=== PATIENT | male | born 1945 | race Caucasian/White ===

== ENCOUNTER 2022-01-27 19:39 | Inpatient (IN) | payer MEDICARE, SELFPAY ==
[2022-01-27 19:58] VITALS: BP 177/96; PULSE 72; RESP 18; TEMP 36.4; O2SAT 96
[2022-01-27 20:29] VITALS: PULSE 72; RESP 18; O2SAT 96
--- NOTE | 2022-01-27 20:30 | PCM.HP.STD ---
HPI - General General Date of Admission: 01/27/22 Date of Service: 01/28/22 Chief Complaint: Here for rehab. HPI Narrative 01/24/2022 CHRIS LYNNE, is a 76 Male who presents to [facility] Emergency Department with intermittent slurred speech, episodes of incontinence, left arm weakness, left facial droop x 3 days. Unsteady gait, headache. Patient has history of HTN, but stopped blood pressure medications, has not seen a doctor for many years. Blood pressure 237/124 on arrival. CBC okay, BMP okay, Troponin okay, EKG okay. CT head okay, Chest X-ray showed 9.5cm thoracic aortic aneurysm, CTA chest negative for thoracic aortic aneurysm. Hydralazine IV given for elevated blood pressure. No TPA recommended due to 3 day delay. MRI brain unavailable on weekends, but patient reflused transfer. 01/24/2022 Xray showed severe arthritis left hip. 01/24/2022 Admit to hospital. Control blood pressure. 01/26/2022 Feeling better. Aspirin, high intensity staty, for stroke. MRI brain, Echo pending. Atrial tachycardia on monitor. 01/27/2022 Admit to TCU with debility, here for rehabilitation, strengthening, prior to discharge home with . [facility] Medical History (Updated 01/27/22 @ 20:[address] Butch Nolasco MD) Debility Dysarthria Hypertensive urgency Left hemiparesis Osteoarthritis of left hip Pulmonary nodule Allergy/AdvReac Type Severity Reaction Status Date / Time No Known Allergies Allergy Verified 01/27/22 22:24 Family History (Updated 01/27/22 @ 20:[address] Butch Nolasco MD) Mother Cancer Father Pulmonary embolism Brother Cancer Surgical History (Updated 01/27/22 @ 20:[address] Butch Nolasco MD) History of cataract surgery Social History (Updated 01/27/22 @ 20:[address] Butch Nolasco MD) household members: spouse Smoking Status: Never smoker alcohol intake: never substance use type: does not use ROS Constitutional Constitutional: Denies chills, fever(s) or weight gain ENT HEENT: Denies headache(s), nasal congestion or nasal discharge Cardiovascular Cardiovascular: Denies chest pain or palpitations Respiratory/Chest Respiratory/Chest: Denies cough, excessive phlegm production or shortness of breath with exertion Gastrointestinal Gastrointestinal: Denies abdominal pain, nausea or vomiting Genitourinary Genitourinary: Denies dysuria Musculoskeletal Musculoskeletal: Denies joint pain or joint swelling Integumentary Integumentary: Denies rash or wounds Neurologic Neurologic: Denies focal weakness, numbness or tingling Psychiatric Psychiatric: Denies anxiety, auditory hallucinations, depression, homicidal ideation or suicidal ideation Physical Exam Const alert General Appearance: cooperative HEENT normocephalic Eyes PERRL and EOMs intact bilaterally Neck supple, no JVD and no carotid bruits Resp normal respiratory effort, normal air movement and clear to auscultation bilaterally Cardio regular rate and regular rhythm GI normal to inspection, nondistended, normoactive bowel sounds, non-tender and non-distended Extremity normal capillary refill General Extremity: Negative for edema Skin no rashes or lesions noted General Skin Exam: no breakdown Neuro Neuro Narrative: Mild left hemiparesis. Speech: speech abnormal Details: Positive for slurred (Mild.) Psych affect normal Appearance: appropriate Results Lab / Micro Data Result Diagrams: 01/28/22 05:03 01/28/22 05:03 Assessment & Plan Assessment/Plan (1) Left hemiparesis: (2) Debility: (3) Dysarthria: (4) Hypertensive urgency: (5) Osteoarthritis of left hip: (6) Pulmonary nodule: PLAN: Plan 76 year old male with below past medical history hospitalized fo stroke secondary to hypertensive urgency, admitted to TCU with debility, here for rehabilitation, strengthening, prior to discharge home with . Debility - PT/OT. Pain - Tylenol 1000mg q8h. Bowel - Miralax 17gm daily, senna/colace 1 tablet bid prn, Dulcolax 10mg daily prn. Adult immunization - Administer pneumonia vaccine, covid19 vaccine, flu vaccine. DVT prophylaxis - Lovenox 40mg sc daily. Hypertension - Lisinopril 20mg daily, Amlodipine 10mg daily. Stroke - Aspirin 81mg daily forever, Plavix 75mg daily x 30 days, then stop. Hyperlipidemia - Atorvastatin 40mg qhs. Tinea Corporis - Nystatin topical bid. GERD - Pantoprazole 20mg daily.
[2022-01-27 22:00] VITALS: BMI 25.0
[2022-01-27] MEDS: Acetaminophen 500 MG Tablet 1000 MG PO (23:12)
[2022-01-27] MEDS: amLODIPine 10 MG Tablet PO (23:13)
[2022-01-27] MEDS: Atorvastatin Calcium 40 MG Tablet PO (23:13)
--- NOTE | 2022-01-28 03:42 | NURSING ---
Pt arrived on unit approx 7pm, family transporting. Alert and oriented x 3. Pleasant and cooperative with care. No c/o pain made. Meds taken whole without difficulty.
[2022-01-28] MEDS: Menthol/Lanolin/Calamine/Znox 113 GM Tube 1 APPLIC TOPICAL (05:34)
[2022-01-28] MEDS: Clopidogrel Bisulfate 75 MG Tablet PO (05:35)
[2022-01-28] MEDS: Acetaminophen 500 MG Tablet 1000 MG PO ×3 (05:35→21:08)
[2022-01-28] MEDS: Nystatin Powder 15gm Bottle 1 APPLIC TOPICAL ×2 (05:35→18:06)
[2022-01-28] MEDS: Pantoprazole Sodium 20 MG Tablet PO (05:35)
[2022-01-28] MEDS: Lisinopril 20 MG Tablet PO (05:35)
[2022-01-28 05:43] LABS: Absolute Lymphocyte Count 2.13 X10^3/uL (0.83-4.51); Absolute Neutrophil Count 4.3 X10^3/uL (2.0-7.7); Basophil# 0.03 X10^3/uL; Basophil% 0.4 % (0-1); Eosinophil# 0.31 X10^3/uL; Eosinophils% 4.2 % (0-5); Hemoglobin 13.9 g/dL (13.0-16.5); Lymphocyte # 2.13 X10^3/ul (0.83-4.51); Lymphocyte % 29.1 % (19-41); Mean Corp Hgb Conc 33.1 g/dL (32-36); Mean Corpuscular Hgb 30.8 pg (27.0-32.0); Mean Corpuscular Volume 92.9 fL (80-94); Mean Platelet Vol. 10.3 fl (6.2-12.0); Monocyte# 0.59 X10^3/uL; NRBC Flagged by Analyzer 0 % (0-5); Neutrophil # 4.26 X10^3/uL (2.7-7.7); Neutrophil % 58.2 % (47-70); Platelet Count 175 K/mm3 (150-450); RBC Distribution Width CV 13.7 % (11.6-14.6); RBC Distribution Width SD 47.1 fl (35.1-43.9); Red Blood Count 4.52 M/mm3 (4.6-6.2); White Blood Count 7.3 K/mm3 (4.4-11.0)
[2022-01-28 06:10] LABS: Anion Gap 6 (5-15); BUN 20 mg/dL (7-18); BUN/Creat Ratio 22.3 RATIO (10-20); Calcium,Total 8.6 mg/dL (8.5-10.1); Chloride 110 mmol/L (98-107); EST Glomerular Filtration Rate 88 mL/min (>60); Est Glom Filt Rate - Afr Amer 106 mL/min (>60); Estimated Creatinine Clearance 72.01 ml/min; Glucose 96 mg/dL (74-106); Potassium 3.3 mmol/L (3.5-5.1); Sodium Level 143 mmol/L (136-145)
[2022-01-28] MEDS: Enoxaparin 40 MG/0.4 ML Syringe SC (07:22)
[2022-01-28] MEDS: Tuberculin,Purif.prot.deriv. 50 TU/ML Vial 0.1 ML ID (07:56)
[2022-01-28] MEDS: Potassium Chloride Oral Tablet 20 MEQ PO (07:56)
[2022-01-28] MEDS: Aspirin 81 MG TAB.CHEW PO (07:56)
[2022-01-28 09:22] VITALS: PULSE 82; RESP 16; O2SAT 97
[2022-01-28 09:30] VITALS: BP 162/95; PULSE 75; RESP 16; O2SAT 97
[2022-01-28 13:58] VITALS: BP 165/96; PULSE 82; RESP 12; TEMP 36.8; O2SAT 95
--- NOTE | 2022-01-28 14:08 | CASEMGMT ---
Social Work Met with patient to complete initial assessment. Introduced self and role. Verified/updated contacts to involve in updates/DC plans. Discussed code status and MOLST form. Pt confirms full code. MOLST communicated to , placed in chart. Pt to discuss with if he would like to complete advanced directives. SW offered to complete prior to DC. Explained Medicare benefit. Pt confirmed no secondary insurance. Explained copays begin on day 21, 02/16. Pt confirmed goal is to be discharged on or before day 21. The goal is for pt to return home with . SW to continue to follow for DC planning. Sherin Loredo, JONO [employer]
--- NOTE | 2022-01-28 14:38 | CHAPLAIN ---
Type of Pastoral Visit _x__ Initial Visit ___ Follow-up Visit ___ On-call Visit ___ General Patient Visit ___ Spiritual Assessment ___ Family Conference ___ Bereavement ___ Rapid Response ___ Code Blue ___ Other (describe below) Pastoral Care Referral From _x__ Patient _x__ Family ___ Nurse ___ Physician ___ Paediatric Thoracic Physician ___ Music Education Adjunct Professor ___ Other (describe below) Sacrament/Intervention _x__ Active listening ___ Anointing ___ Adventism ___ Bereavement ___ Communion ___ Nicki exploration ___ ___ Life review _x__ Prayer ___ Reconciliation ___ Sacrament of Sick _x__ Supportive presence ___ Wedding ___ Other (describe below) Pastoral Comments patient is eating lunch and has several family visitors in the room; pt refers to the three in room as the bosses and there are more of them than this; pt states that his goal is to get home as soon as possible and I can be active there; pt is welcoming of visit but does not express any needs or concerns other than going home; pt welcomes prayer; pt does not have a synagogue affiliation but does
--- NOTE | 2022-01-28 15:14 | PCM.PN.DRR ---
TCU RX Drug Regimen Review Subjective: TCU Admission. 76 YOM presented to outside ER with intermittent slurred speech, incontinence, left arm weakness and facial droop. Hospitalized for stroke secondary to hypertensive urgency. Admitted to TCU with debility for strengthening and rehabilitation. Objective: Allergies No Known Allergies Allergy (Verified 01/27/22 22:24) Current Medications Generic Name Dose Route Start Last Admin Trade Name Freq PRN Reason Stop Dose Admin Acetaminophen 1,000 mg 01/27/22 22:00 01/28/22 13:23 Acetaminophen 500 Mg Tablet PO 1,000 mg Q8 WILLIAM Administration Amlodipine Besylate 10 mg 01/27/22 22:00 01/27/22 23:13 Amlodipine 10 Mg Tablet PO 10 mg 2200 WILLIAM Administration Aspirin 81 mg 01/28/22 08:00 01/28/22 07:56 Aspirin 81 Mg Tab.Chew PO 81 mg BREAKFAST WILLIAM Administration Atorvastatin Calcium 40 mg 01/27/22 22:00 01/27/22 23:13 Atorvastatin Calcium 40 Mg Tablet PO 40 mg QHS WILLIAM Administration Bisacodyl 10 mg 01/27/22 20:45 Bisacodyl 5 Mg Tablet PO DAILY PRN Constipation Calamine/Phenol 1 applic 01/28/22 06:00 01/28/22 05:34 Menthol/Lanolin/Calamine/Znox 113 Gm Tube TOPICAL 1 applic BID WILLIAM Administration Protocol Clopidogrel Bisulfate 75 mg 01/28/22 06:00 01/28/22 05:35 Clopidogrel Bisulfate 75 Mg Tablet PO 02/27/22 06:00 75 mg DAILY WILLIAM Administration Enoxaparin Sodium 40 mg 01/28/22 06:00 01/28/22 07:22 Enoxaparin 40 Mg/0.4 Ml Syringe SC 40 mg DAILY@0600 WILLIAM Administration Lisinopril 20 mg 01/28/22 06:00 01/28/22 05:35 Lisinopril 20 Mg Tablet PO 20 mg DAILY WILLIAM Administration Nystatin 1 applic 01/28/22 06:00 01/28/22 05:35 Nystatin Powder 15gm Bottle TOPICAL 1 applic BID WILLIAM Administration Protocol Pantoprazole Sodium 20 mg 01/28/22 06:00 01/28/22 05:35 Pantoprazole Sodium 20 Mg Tablet PO 20 mg DAILY WILLIAM Administration Polyethylene Glycol 17 gm 01/28/22 06:00 01/28/22 05:35 Polyethylene Glycol 3350 17 Gm Packet PO Not Given DAILY WILLIAM Potassium Chloride 20 meq 01/28/22 08:00 01/28/22 07:53 Potassium Chloride Oral Tablet 20 Meq PO Not Given DAILYCM WILLIAM Senna/Docusate Sodium 1 tablet 01/27/22 20:45 Senna/Docusate Sodium 1 Tablet PO BID PRN PRN Constipation Tuberculin PPD 0.1 ml 02/04/22 10:00 Tuberculin,Purif.Prot.Deriv. 50 Tu/Ml Vial ID 02/04/22 10:01 X1 ONE Problem List (Last Updated 01/27/22 @ 20:[address] Butch Nolasco MD) Pulmonary nodule (Acute) Osteoarthritis of left hip (Acute) Hypertensive urgency (Acute) Dysarthria (Acute) Left hemiparesis (Acute) Debility (Acute) Vital Signs Temp Pulse Resp BP Pulse Ox 98.3 F 82 12 165/96 H 95 01/28/22 13:58 01/28/22 13:58 01/28/22 13:58 01/28/22 13:58 01/28/22 13:58 Oxygen Delivery Method Room Air Weight: 78.3 kg Body Mass Index (BMI) 25.0 Sodium 143 mmol/L (136-145) 01/28/22 05:03 Potassium 3.3 mmol/L (3.5-5.1) L 01/28/22 05:03 Chloride 110 mmol/L (98-107) H 01/28/22 05:03 Carbon Dioxide 27.0 mmol/L (21.0-32.0) 01/28/22 05:03 Anion Gap 6 (5-15) 01/28/22 05:03 BUN 20 mg/dL (7-18) H 01/28/22 05:03 Creatinine 0.90 mg/dL (0.70-1.30) 01/28/22 05:03 Est GFR (MDRD) Af Amer 106 mL/min (>60) 01/28/22 05:03 Est GFR (MDRD) Non-Af 88 mL/min (>60) 01/28/22 05:03 BUN/Creatinine Ratio 22.3 RATIO (10-20) H 01/28/22 05:03 Glucose 96 mg/dL (74-106) 01/28/22 05:03 Assessment/Plan: 1. Pain: acetaminophen 1000mg PO Q8. Please continue to monitor for increased pain. 2. Bowel: Miralax 17gm Po daily, senna/docusate 1T PO BID PRN constipation and bisacodyl 10mg PO daily PRN constipation. Please continue to monitor for constipation and PRN usage. Resident has not had a documented bowel movement yet. Resident has not had any doses of senna/docusate or bisacodyl. 3. DVT prophylaxis: enoxaparin 40mg SC daily. Please continue to monitor for S/S of bleeding/DVT, hemoglobin (last 13.9g/dL), renal function and platelets (175,000). 4. Hypertension: lisinopril 20mg PO daily and amlodipine 10mg PO 2200. Please continue to monitor BP (last 165/96), potassium (last 3.3mmol/L), renal function, cough and swelling. 5. Stroke: aspirin 81mg PO breakfast and clopidogrel 75mg PO daily thru 02/27/22. Please continue to monitor for S/S of bleeding and hemoglobin (last 13.9g/dL). 6. Hyperlipidemia: atorvastatin 40mg PO QHS. Resident does not have a lipid panel in the chart. Please consider ordering a lipid panel now and then annually if clinically appropriate. Please continue to monitor for muscle pain and AST/ALT (last 01/22/22). 7. GERD: pantoprazole 20mg PO daily. Please continue to monitor for S/S of GERD and diarrhea. 8. Hypokalemia (potassium = 3.3mmol/L): potassium 20mEq PO DAILYCM. Please continue to monitor potassium level. Assessment/Plan for indications treated with psychotropic medications: None Medical chart and medication regimen reviewed. The following medication irregularities or issues were identified: *1. Atorvastatin 40mg PO QHS. Resident does not have a lipid panel in the chart. Please consider ordering a lipid panel if clinically appropriate. Thanks. . Date of Note:: 01/28/22
[2022-01-28] MEDS: Atorvastatin Calcium 40 MG Tablet PO (21:09)
[2022-01-28] MEDS: amLODIPine 10 MG Tablet PO (21:09)
[2022-01-29 05:31] VITALS: BP 143/88; PULSE 66
[2022-01-29] MEDS: Clopidogrel Bisulfate 75 MG Tablet PO (05:31)
[2022-01-29] MEDS: Enoxaparin 40 MG/0.4 ML Syringe SC (05:31)
[2022-01-29] MEDS: Lisinopril 20 MG Tablet PO (05:31)
[2022-01-29] MEDS: Pantoprazole Sodium 20 MG Tablet PO (05:31)
[2022-01-29] MEDS: Acetaminophen 500 MG Tablet 1000 MG PO ×3 (05:31→20:45)
[2022-01-29] MEDS: Nystatin Powder 15gm Bottle 1 APPLIC TOPICAL ×2 (05:34→18:06)
[2022-01-29] MEDS: Menthol/Lanolin/Calamine/Znox 113 GM Tube 1 APPLIC TOPICAL ×3 (05:34→20:45)
[2022-01-29] MEDS: Aspirin 81 MG TAB.CHEW PO (08:09)
[2022-01-29] MEDS: Potassium Chloride Oral Tablet 20 MEQ PO (08:10)
[2022-01-29 15:41] VITALS: BP 163/91; PULSE 69
[2022-01-29 16:18] VITALS: RESP 18; TEMP 36.2; O2SAT 97
[2022-01-29] MEDS: Losartan Potassium 100 MG Tablet PO (16:20)
[2022-01-29 18:03] VITALS: BP 178/101; PULSE 76
[2022-01-29] MEDS: Metoprolol Tartrate 25 MG Tablet 12.5 MG PO (18:03)
[2022-01-29 18:43] VITALS: BP 162/92; PULSE 72
[2022-01-29] MEDS: Atorvastatin Calcium 40 MG Tablet PO (20:44)
[2022-01-29] MEDS: amLODIPine 10 MG Tablet PO (20:45)
[2022-01-29 21:00] VITALS: PULSE 64; RESP 18; O2SAT 97
[2022-01-30] MEDS: Enoxaparin 40 MG/0.4 ML Syringe SC (05:27)
[2022-01-30] MEDS: Acetaminophen 500 MG Tablet 1000 MG PO ×3 (05:27→20:44)
[2022-01-30 05:28] VITALS: BP 152/83; PULSE 63
[2022-01-30] MEDS: Metoprolol Tartrate 25 MG Tablet 12.5 MG PO (05:28)
[2022-01-30] MEDS: Losartan Potassium 100 MG Tablet PO (05:28)
[2022-01-30] MEDS: Clopidogrel Bisulfate 75 MG Tablet PO (05:28)
[2022-01-30] MEDS: Pantoprazole Sodium 20 MG Tablet PO (05:28)
[2022-01-30] MEDS: Nystatin Powder 15gm Bottle 1 APPLIC TOPICAL ×2 (05:29→17:32)
[2022-01-30 06:27] LABS: Anion Gap 5 (5-15); BUN 20 mg/dL (7-18); BUN/Creat Ratio 21.3 RATIO (10-20); Calcium,Total 8.8 mg/dL (8.5-10.1); Chloride 109 mmol/L (98-107); Creatinine, Serum 0.94 mg/dL (0.70-1.30); EST Glomerular Filtration Rate 84 mL/min (>60); Est Glom Filt Rate - Afr Amer 101 mL/min (>60); Estimated Creatinine Clearance 68.95 ml/min; Glucose 99 mg/dL (74-106); Potassium 4.5 mmol/L (3.5-5.1); Sodium Level 142 mmol/L (136-145)
[2022-01-30] MEDS: Aspirin 81 MG TAB.CHEW PO (09:12)
[2022-01-30] MEDS: Potassium Chloride Oral Tablet 20 MEQ PO (09:12)
[2022-01-30 14:00] VITALS: BP 163/116; PULSE 81; RESP 18; TEMP 36.4; O2SAT 96
[2022-01-30 14:21] VITALS: BP 156/92
--- NOTE | 2022-01-30 14:42 | NURSING ---
Addendum entered by Ilsa Jackson 01/30/22 15:58: Dr. Nolasco updated and New Order to increase Metoprolol 50mg. Addendum entered by Ilsa Jackson 01/30/22 15:26: Rechecked pt BP at rest 134/86 Pulse 60 Original Note: This nurse took pt's BP at rest and was 163/116 Pulse 81 Rechecked with manual and BP 156/92. Pt up with Therapy rechecked BP and 180/111 will recheck at rest and update Dr. Nolasco.
[2022-01-30 17:31] VITALS: BP 159/92; PULSE 86
[2022-01-30] MEDS: Metoprolol Tartrate 50 MG Tablet PO (17:31)
[2022-01-30] MEDS: Menthol/Lanolin/Calamine/Znox 113 GM Tube 1 APPLIC TOPICAL (17:34)
[2022-01-30] MEDS: amLODIPine 10 MG Tablet PO (20:44)
[2022-01-30] MEDS: Atorvastatin Calcium 40 MG Tablet PO (20:44)
[2022-01-30 20:46] VITALS: BP 143/85; PULSE 72
[2022-01-31 05:59] VITALS: BP 165/88; PULSE 58
[2022-01-31] MEDS: Enoxaparin 40 MG/0.4 ML Syringe SC (05:59)
[2022-01-31] MEDS: Metoprolol Tartrate 50 MG Tablet PO ×2 (05:59→17:21)
[2022-01-31] MEDS: Pantoprazole Sodium 20 MG Tablet PO (05:59)
[2022-01-31] MEDS: Clopidogrel Bisulfate 75 MG Tablet PO (05:59)
[2022-01-31] MEDS: Losartan Potassium 100 MG Tablet PO (05:59)
[2022-01-31] MEDS: Acetaminophen 500 MG Tablet 1000 MG PO ×3 (05:59→22:36)
[2022-01-31] MEDS: Nystatin Powder 15gm Bottle 1 APPLIC TOPICAL ×2 (06:06→17:21)
[2022-01-31] MEDS: Menthol/Lanolin/Calamine/Znox 113 GM Tube 1 APPLIC TOPICAL ×2 (06:08→17:21)
[2022-01-31] MEDS: Potassium Chloride Oral Tablet 20 MEQ PO (07:55)
[2022-01-31] MEDS: Aspirin 81 MG TAB.CHEW PO (07:55)
--- NOTE | 2022-01-31 12:54 | NURSING ---
Resident educated on the COVID 19 vaccine. He does not want to receive it.
--- NOTE | 2022-01-31 13:51 | MDS.RN ---
Pain interview for RAY 02/03/22 completed.
[2022-01-31 14:00] VITALS: BP 146/74; PULSE 70; RESP 16; TEMP 36.6; O2SAT 94
--- NOTE | 2022-01-31 14:26 | CASEMGMT ---
BIMS and PHQ9 interviews completed on this date for MDS assessment. AUGUSTO Young
[2022-01-31 17:21] VITALS: PULSE 70
--- NOTE | 2022-01-31 18:20 | PCM.CONS.GEN ---
Assessment & Plan Assessment/Plan (1) Dysphagia: PLAN: The differential diagnosis for esophageal dysphagia does include an esophageal ring, esophageal web, erosive esophagitis, esophageal malignancy. Also differential diagnosis would include hiatal hernia. He should undergo an upper endoscopy evaluate his upper GI tract. He was explained alternatives, risk, benefits including outstanding bleeding, infection, sepsis, perforation, need for emergent or . He will have an ASA of 3. He will need to be n.p.o. past midnight. HPI Consult Data Date of Consult: 01/31/22 HPI Narrative Reason for Consultation: Dysphagia HPI Narrative: CHRIS LYNNE, is a 76 M who presents for rehab after being transferred from an outside institution. He presented to outside ER with intermittent slurred speech, incontinence, left arm weakness and facial droop. Hospitalized for stroke secondary to hypertensive urgency. Admitted to TCU with debility for strengthening and rehabilitation. I was asked to see him because he has been having some intermittent esophageal dysphagia with solid foods. He used to have a history of reflux disease requiring Tums therapy on an intermittent basis. However over the last several years he has not had any signs and symptoms of reflux disease but he has been having progressive esophageal dysphagia. His weight has been stable. He has no family history of esophageal cancer or Mendoza's esophagus. He does not know if he has any hiatal hernia or any GI pathology in his upper GI tract. He mostly is having up feeling of mid substernal sticking of food that he calls a gas pocket. [facility] Medical History (Updated 01/31/22 @ 18:[address] Gross Friend, DO) Debility Dysarthria Hypertensive urgency Left hemiparesis Osteoarthritis of left hip Pulmonary nodule Allergy/AdvReac Type Severity Reaction Status Date / Time No Known Allergies Allergy Verified 01/27/22 22:24 Family History (Updated 01/27/22 @ 20:[address] Butch Nolasco MD) Mother Cancer Father Pulmonary embolism Brother Cancer Surgical History (Updated 01/27/22 @ 20:[address] Butch Nolasco MD) History of cataract surgery Social History (Updated 01/27/22 @ 20:[address] Butch Nolasco MD) household members: spouse Smoking Status: Never smoker alcohol intake: never substance use type: does not use ROS Constitutional Constitutional: Denies chills, fever(s) or weight gain ENT HEENT: Denies headache(s), nasal congestion or nasal discharge Cardiovascular Cardiovascular: Denies chest pain or palpitations Respiratory/Chest Respiratory/Chest: Denies cough, excessive phlegm production or shortness of breath with exertion Gastrointestinal Gastrointestinal: Denies abdominal pain, nausea or vomiting Genitourinary Genitourinary: Denies dysuria Musculoskeletal Musculoskeletal: Denies joint pain or joint swelling Integumentary Integumentary: Denies rash or wounds Neurologic Neurologic: Denies focal weakness, numbness or tingling Psychiatric Psychiatric: Denies anxiety, auditory hallucinations, depression, homicidal ideation or suicidal ideation Physical Exam Const alert General Appearance: cooperative HEENT normocephalic Eyes PERRL and EOMs intact bilaterally Neck supple, no JVD and no carotid bruits Resp normal respiratory effort, normal air movement and clear to auscultation bilaterally Cardio regular rate and regular rhythm GI normal to inspection, nondistended, normoactive bowel sounds, non-tender and non-distended Extremity normal capillary refill General Extremity: Negative for edema Skin no rashes or lesions noted General Skin Exam: no breakdown Neuro Neuro Narrative: Mild left hemiparesis. Speech: speech abnormal Details: Positive for slurred (Mild.) Psych affect normal Appearance: appropriate Lab / Micro Data Result Diagrams: 01/28/22 05:03 01/30/22 05:19 Charges/Coding Visit Charges Inpatient E&M: 62279 Init Hosp L2
[2022-01-31 22:20] VITALS: PULSE 59; RESP 16; O2SAT 96
[2022-01-31] MEDS: amLODIPine 10 MG Tablet PO (22:37)
[2022-01-31] MEDS: Atorvastatin Calcium 40 MG Tablet PO (22:37)
[2022-02-01] VITALS (12 sets, daily range): BP systolic 150–168; BP diastolic 71–95; PULSE 59–68; RESP 16–18; TEMP 36.1–36.2; O2SAT 95–98
--- NOTE | 2022-02-01 | EGD_PTH ---
PATIENT: Eebnezer LYNNE LOC: [facility] U#:[id number] AGE/SX: 76/M ROOM: [facility] RE01/27/[address]: Dr. Butch Nolasco MD : 1945 BED: 1 DIS: 02/08/2022 SPEC #: [id number] RECD: 02/01/22 09:18 STATUS: BRAD HAYES #: [id number] JUAN: 02/01/22 00:[address]: Ra Emilianohsaan DEPT: SURGICAL PATHOLOGY RECD BY: Osman Nice ENTERED: 02/04/22 10:14 SP TYPE: EGD BIOPSY OTHR DR: Dr. Butch Nolasco MD No Primary Care Phys Tissues: A - Esophagus, NOS B - Gastric mucous membrane Procedures: Surgery Specimen Level IV HEADER OPERATION: EGD with biopsy (MAC) PRE-OP DIAGNOSIS: Dysphagia TISSUE SUBMITTED: A ? Distal esophagus biopsy, B ? Gastric body biopsy MICROSCOPIC DIAGNOSIS A. Distal esophagus, biopsy: Fragments of squamous mucosa, no pathologic diagnosis. B. Gastric body, biopsy: Mild gastritis. See microscopic description and comment. JAMES:alex 02/05/2022 COMMENT B. The results of immunohistochemistry for Helicobacter pylori will be reported separately ([id number]). MICROSCOPIC DESCRIPTION Slides are reviewed. B. The specimen shows fragments of gastric mucosa with chronic inflammatory cell infiltrates in the lamina propria consisting of lymphocytes and plasma cells, consistent with mild chronic gastritis. GROSS DESCRIPTION A - Received in fixative is one container labeled with the patient's name and designated distal esophagus biopsy. The specimen consists of multiple irregular fragments of light lebron soft tissue that in aggregate measure 0.4 x 0.3 x 0.1 cm. The specimen is totally submitted in one cassette. B - Received in fixative is one container labeled with the patient's name and designated gastric body biopsy. The specimen consists of two irregular fragments of light lebron soft tissue that in aggregate measure 0.8 x 0.6 x 0.1 cm. The specimen is totally submitted in one cassette. / JAMES:alex 02/04/2022 TC:3 CPT: 68838 x2
[2022-02-01] MEDS: Potassium Chloride Oral Tablet 20 MEQ PO (07:46)
[2022-02-01] MEDS: Clopidogrel Bisulfate 75 MG Tablet PO (07:46)
[2022-02-01] MEDS: Losartan Potassium 100 MG Tablet PO (07:46)
[2022-02-01] MEDS: Aspirin 81 MG TAB.CHEW PO (07:46)
[2022-02-01] MEDS: Pantoprazole Sodium 20 MG Tablet PO (07:46)
[2022-02-01] MEDS: Metoprolol Tartrate 50 MG Tablet PO ×2 (07:46→16:36)
--- NOTE | 2022-02-01 07:50 | NURSING ---
pt off floor to Endo via WC at this time.
--- NOTE | 2022-02-01 08:05 | IMM_PTH ---
PATIENT: Ebenezer LYNNE LOC: [facility] U#:[id number] AGE/SX: 76/M ROOM: [facility] RE01/27/[address]: Dr. Butch Nolasco MD : 1945 BED: 1 DIS: 02/08/2022 SPEC #: [id number] RECD: 02/04/22 13:12 STATUS: BRAD REMarcel #: [id number] JUAN: 02/01/22 08:[address]: Ra Emilianohsaan DEPT: IMMUNOHISTOCHEMISTRY RECD BY: Leana Gutierrez ENTERED: 02/04/22 13:13 SP TYPE: IMMUNO OTHR DR: Dr. Butch Nolasco MD No Primary Care Phys Tissues: B - Stomach, NOS Procedures: H Pylori (initial) PHYSICIAN & INSTITUTION [place] [phone] SPECIMEN INFORMATION: Tissue Source: B ? Gastric body Clinical Info: Dysphagia Specimen Number: [id number] CPT code: 82000 METHODOLOGY: Deparaffinized sections of prefer/formalin-fixed tissue or PAP/DQ stained slides are incubated with monoclonal/polyclonal antibodies/oligonucleotide probes. Localization is made via biotin free immunoperoxidase method. Appropriate controls are performed and reacted as expected. Results on target cell population are indicated in the following table: RESULTS: ANTIBODY / CLONE RESULT Block B H Pylori (polyclonal) negative These tests were developed and their performance characteristics determined by [facility]. They may not have been cleared or approved by the U.S. Food and Drug Administration. The FDA has determined that such clearance or approval is not necessary. The above immunohistochemical/dualISH markers are ordered and reviewed by the Pathologist. INTERPRETATION: B. Gastric body, biopsy: Negative for Helicobacter pylori organisms. SJ:alex 02/05/2022
--- NOTE | 2022-02-01 08:36 | OP.EGD_ITS ---
Patient Name: Braden Ferrara Procedure Date: 02/01/2022 8:15 AM Date of : 1945 Age: 76 Procedure: Upper GI endoscopy Indications: Dysphagia Providers: Renato Cummings DO Medicines: Monitored Anesthesia Care Patient Profile: This is a 76 year old male. Refer to note in patient chart for documentation of history and physical. Patient has symptoms of chronic dysphagia and dysphagia with solids. Complications: No immediate complications. Procedure: Pre-Anesthesia Assessment: - Prior to the procedure, a History and Physical was performed, and patient medications and allergies were reviewed. The risks and benefits of the procedure and the sedation options and risks were discussed with the patient. All questions were answered and informed consent was obtained. Patient identification and proposed procedure were verified by the physician in the pre-procedure area. Mental Status Examination: alert and oriented. Airway Examination: normal oropharyngeal airway and neck mobility. Respiratory Examination: clear to auscultation. CV Examination: normal. Prophylactic Antibiotics: The patient does not require prophylactic antibiotics. Prior Anticoagulants: The patient has taken no previous anticoagulant or antiplatelet agents. After reviewing the risks and benefits, the patient was deemed in satisfactory condition to undergo the procedure. The anesthesia plan was to use moderate sedation / analgesia (conscious sedation). Immediately prior to administration of medications, the patient was re-assessed for adequacy to receive sedatives. The heart rate, respiratory rate, oxygen saturations, blood pressure, adequacy of pulmonary ventilation, and response to care were monitored throughout the procedure. The physical status of the patient was re-assessed after the procedure. After obtaining informed consent, the endoscope was passed under direct vision. Throughout the procedure, the patient's blood pressure, pulse, and oxygen saturations were monitored continuously. The Endoscope was introduced through the mouth, and advanced to the second part of duodenum. The upper GI endoscopy was accomplished without difficulty. The patient tolerated the procedure well. Scope In: 8:19:58 AM Scope Out: 8:26:23 AM Total Procedure Duration Time 0 hours 6 minutes 25 seconds Findings: The Z-line was irregular and was found 36 cm from the incisors. Biopsies were taken with a cold forceps for histology. Verification of patient identification for the specimen was done. Estimated blood loss was minimal. A large hiatal hernia was present. A small amount of food (residue) was found in the gastric fundus. A large hiatal hernia with multiple Stephane ulcers was found. The proximal extent of the gastric folds (end of tubular esophagus) was 34 cm from the incisors. The hiatal narrowing was 42 cm from the incisors. Four oozing linear gastric ulcers were found in the gastric body. The largest lesion was 6 mm in largest dimension. Biopsies were taken with a cold forceps for histology. Verification of patient identification for the specimen was done. Estimated blood loss was minimal. The second portion of the duodenum was normal. Impression: - Z-line irregular, 36 cm from the incisors. Biopsied. - Large hiatal hernia. - A small amount of food (residue) in the stomach. - Large hiatal hernia with multiple Stephane ulcers. - Oozing gastric ulcers. Biopsied. - Normal second portion of the duodenum. Recommendation: - [facility] care. - Resume previous diet. - Continue present medications. - Await pathology results. - Use Protonix (pantoprazole) 40 mg PO BID for 8 weeks. Procedure Code(s): --- Professional --- 08553, Esophagogastroduodenoscopy, flexible, transoral; with biopsy, single or multiple CPT copyright 2017 [employer]. All rights reserved. The codes documented in this report are preliminary and upon clinical assoc review may be revised to meet current compliance requirements. Renato Cummings DO 02/01/2022 8:36:24 AM This report has been signed electronically. Number of Addenda: 1 Note Initiated On: 02/01/2022 8:15 AM Addendum Number: 1 Addendum Date: 05/07/2022 6:32:53 AM MAC was used as sedation for this procedure. Renato Cummings DO 05/07/2022 6:32:57 AM This report has been signed electronically.
--- NOTE | 2022-02-01 08:37 | OP.CCLET_ITS ---
05/07/2022 No Primary Care Physician Re : Upper GI endoscopy procedure for Braden Ferrara Dear Care Physician This procedure was performed on Tuesday, February 01, 2022. My impressions and recommendations are as follows: Impressions : - Z-line irregular, 36 cm from the incisors. Biopsied. - Large hiatal hernia. - A small amount of food (residue) in the stomach. - Large hiatal hernia with multiple Stephane ulcers. - Oozing gastric ulcers. Biopsied. - Normal second portion of the duodenum. Recommendations : - [facility] to [facility] care. - Resume previous diet. - Continue present medications. - Await pathology results. - Use Protonix (pantoprazole) 40 mg PO BID for 8 weeks. My findings are described in the full procedure note, which is enclosed. If I can be of further assistance, please feel free to contact me at . Sincerely, Renato Cummings, 02/01/2022 8:36:24 AM This report has been signed electronically.
--- NOTE | 2022-02-01 09:15 | NURSING ---
pt retured from endo, awake and oriented. eating jello and drinking gingerale. new orders for IV protonix, biospsies sent.
[2022-02-01] MEDS: 0.9% Saline Lock 10 ML Syringe IV (10:24)
[2022-02-01] MEDS: Nystatin Powder 15gm Bottle 1 APPLIC TOPICAL ×2 (10:24→16:39)
[2022-02-01] MEDS: Menthol/Lanolin/Calamine/Znox 113 GM Tube 1 APPLIC TOPICAL ×2 (10:24→16:38)
--- NOTE | 2022-02-01 12:58 | NURSING ---
Addendum entered by Tanisha Freed 02/01/22 13:02: when entered pt room, many family members/ including children in room without masks. reminded them that [facility] protocol is to keep masks on at all times. They did all place them back on their faces. Original Note: & pt notified that we had a staff member test positive.
[2022-02-01] MEDS: Acetaminophen 500 MG Tablet 1000 MG PO ×2 (13:49→21:19)
--- NOTE | 2022-02-01 15:54 | NURSING ---
pt is to have IV protonix 12hrs then can be changed to oral protonix 40mg BID per Dr Cummings
[2022-02-01] MEDS: Atorvastatin Calcium 40 MG Tablet PO (21:19)
[2022-02-01] MEDS: amLODIPine 10 MG Tablet PO (21:19)
[2022-02-02] MEDS: 0.9% Saline Lock 10 ML Syringe IV (00:20)
[2022-02-02 06:34] VITALS: BP 159/75; PULSE 61
[2022-02-02] MEDS: Acetaminophen 500 MG Tablet 1000 MG PO ×3 (06:34→20:44)
[2022-02-02] MEDS: Metoprolol Tartrate 50 MG Tablet PO ×2 (06:34→17:19)
[2022-02-02] MEDS: Enoxaparin 40 MG/0.4 ML Syringe SC (06:34)
[2022-02-02] MEDS: Losartan Potassium 100 MG Tablet PO (06:34)
[2022-02-02] MEDS: Pantoprazole Sodium 40 MG Tablet PO ×2 (06:34→17:19)
[2022-02-02] MEDS: Clopidogrel Bisulfate 75 MG Tablet PO (06:34)
[2022-02-02] MEDS: Menthol/Lanolin/Calamine/Znox 113 GM Tube 1 APPLIC TOPICAL ×2 (06:34→17:22)
[2022-02-02] MEDS: Nystatin Powder 15gm Bottle 1 APPLIC TOPICAL ×2 (06:36→17:22)
[2022-02-02] MEDS: Aspirin 81 MG TAB.CHEW PO (08:10)
[2022-02-02] MEDS: Potassium Chloride Oral Tablet 20 MEQ PO (08:10)
[2022-02-02 14:00] VITALS: BP 157/70; PULSE 55; RESP 17; TEMP 36; O2SAT 96
[2022-02-02 17:19] VITALS: PULSE 55
[2022-02-02] MEDS: amLODIPine 10 MG Tablet PO (20:44)
[2022-02-02] MEDS: Atorvastatin Calcium 40 MG Tablet PO (20:44)
[2022-02-02 20:53] VITALS: BP 161/81; PULSE 66
[2022-02-03] MEDS: Enoxaparin 40 MG/0.4 ML Syringe SC (05:23)
[2022-02-03] MEDS: Acetaminophen 500 MG Tablet 1000 MG PO ×3 (05:24→20:46)
[2022-02-03 05:25] VITALS: BP 159/84; PULSE 61
[2022-02-03] MEDS: Metoprolol Tartrate 50 MG Tablet PO ×2 (05:25→17:29)
[2022-02-03] MEDS: Pantoprazole Sodium 40 MG Tablet PO ×2 (05:25→17:29)
[2022-02-03] MEDS: Losartan Potassium 100 MG Tablet PO (05:26)
[2022-02-03] MEDS: Clopidogrel Bisulfate 75 MG Tablet PO (05:26)
[2022-02-03] MEDS: Nystatin Powder 15gm Bottle 1 APPLIC TOPICAL ×2 (05:28→17:29)
[2022-02-03] MEDS: Menthol/Lanolin/Calamine/Znox 113 GM Tube 1 APPLIC TOPICAL ×2 (05:28→17:29)
[2022-02-03] MEDS: Potassium Chloride Oral Tablet 20 MEQ PO (08:22)
[2022-02-03] MEDS: Aspirin 81 MG TAB.CHEW PO (08:22)
[2022-02-03 10:00] VITALS: PULSE 61; RESP 16; O2SAT 98
[2022-02-03 14:00] VITALS: BP 165/78; PULSE 56; RESP 18; TEMP 36; O2SAT 97
[2022-02-03 17:29] VITALS: PULSE 56
[2022-02-03] MEDS: amLODIPine 10 MG Tablet PO (20:46)
[2022-02-03] MEDS: Atorvastatin Calcium 40 MG Tablet PO (20:46)
[2022-02-04] MEDS: Enoxaparin 40 MG/0.4 ML Syringe SC (05:30)
[2022-02-04 05:31] VITALS: BP 148/76; PULSE 55
[2022-02-04] MEDS: Clopidogrel Bisulfate 75 MG Tablet PO (05:31)
[2022-02-04] MEDS: Pantoprazole Sodium 40 MG Tablet PO ×2 (05:31→17:32)
[2022-02-04] MEDS: Losartan Potassium 100 MG Tablet PO (05:31)
[2022-02-04] MEDS: Acetaminophen 500 MG Tablet 1000 MG PO ×3 (05:31→21:42)
[2022-02-04] MEDS: Metoprolol Tartrate 50 MG Tablet PO ×2 (05:31→17:32)
[2022-02-04] MEDS: Menthol/Lanolin/Calamine/Znox 113 GM Tube 1 APPLIC TOPICAL ×2 (05:34→17:32)
[2022-02-04] MEDS: Nystatin Powder 15gm Bottle 1 APPLIC TOPICAL ×2 (05:35→17:32)
[2022-02-04 06:00] LABS: Absolute Lymphocyte Count 2.07 X10^3/uL (0.83-4.51); Absolute Neutrophil Count 3.8 X10^3/uL (2.0-7.7); Basophil# 0.04 X10^3/uL; Basophil% 0.6 % (0-1); Eosinophil# 0.25 X10^3/uL; Eosinophils% 3.6 % (0-5); Hematocrit 42.7 % (40-54); Lymphocyte # 2.07 X10^3/ul (0.83-4.51); Lymphocyte % 30.2 % (19-41); Mean Corp Hgb Conc 32.8 g/dL (32-36); Mean Corpuscular Hgb 30.6 pg (27.0-32.0); Mean Corpuscular Volume 93.2 fL (80-94); Mean Platelet Vol. 10.6 fl (6.2-12.0); Monocyte# 0.66 X10^3/uL; Monocyte% 9.6 % (0-10); NRBC Flagged by Analyzer 0 % (0-5); Neutrophil # 3.82 X10^3/uL (2.7-7.7); Neutrophil % 55.7 % (47-70); Platelet Count 196 K/mm3 (150-450); RBC Distribution Width CV 13.6 % (11.6-14.6); RBC Distribution Width SD 46.4 fl (35.1-43.9); Red Blood Count 4.58 M/mm3 (4.6-6.2); White Blood Count 6.9 K/mm3 (4.4-11.0)
[2022-02-04 06:39] LABS: Anion Gap 3 (5-15); BUN 25 mg/dL (7-18); BUN/Creat Ratio 25.8 RATIO (10-20); Calcium,Total 8.8 mg/dL (8.5-10.1); Chloride 111 mmol/L (98-107); Creatinine, Serum 0.97 mg/dL (0.70-1.30); EST Glomerular Filtration Rate 80 mL/min (>60); Est Glom Filt Rate - Afr Amer 97 mL/min (>60); Estimated Creatinine Clearance 66.81 ml/min; Glucose 93 mg/dL (74-106); Potassium 3.7 mmol/L (3.5-5.1); Sodium Level 141 mmol/L (136-145)
[2022-02-04] MEDS: Potassium Chloride Oral Tablet 20 MEQ PO (08:12)
[2022-02-04] MEDS: Aspirin 81 MG TAB.CHEW PO (08:12)
--- NOTE | 2022-02-04 08:21 | NURSING ---
Air Brake Man Note: MDS Section F and interview completed.
[2022-02-04 14:00] VITALS: BP 159/91; PULSE 58; RESP 18; TEMP 36.8; O2SAT 97
[2022-02-04] MEDS: Tuberculin,Purif.prot.deriv. 50 TU/ML Vial 0.1 ML ID (14:19)
[2022-02-04 17:32] VITALS: BP 159/91; PULSE 58
[2022-02-04] MEDS: amLODIPine 10 MG Tablet PO (21:42)
[2022-02-04] MEDS: Atorvastatin Calcium 40 MG Tablet PO (21:42)
[2022-02-04 23:00] VITALS: PULSE 64; RESP 18; O2SAT 99
[2022-02-05] MEDS: Losartan Potassium 100 MG Tablet PO (05:33)
[2022-02-05] MEDS: Clopidogrel Bisulfate 75 MG Tablet PO (05:33)
[2022-02-05] MEDS: Pantoprazole Sodium 40 MG Tablet PO ×2 (05:33→17:40)
[2022-02-05] MEDS: Enoxaparin 40 MG/0.4 ML Syringe SC (05:33)
[2022-02-05] MEDS: Acetaminophen 500 MG Tablet 1000 MG PO ×3 (05:33→20:59)
[2022-02-05 05:34] VITALS: BP 146/76; PULSE 60
[2022-02-05] MEDS: Nystatin Powder 15gm Bottle 1 APPLIC TOPICAL ×2 (05:34→17:40)
[2022-02-05] MEDS: Metoprolol Tartrate 50 MG Tablet PO ×2 (05:34→17:40)
[2022-02-05] MEDS: Aspirin 81 MG TAB.CHEW PO (08:11)
[2022-02-05] MEDS: Potassium Chloride Oral Tablet 20 MEQ PO (08:11)
[2022-02-05 09:37] VITALS: PULSE 73; O2SAT 97
--- NOTE | 2022-02-05 09:52 | CASEMGMT ---
Addendum entered by Sherin Loredo 02/05/22 10:10: Correction: Enrique Oropeza PT. Original Note: Social Work IDT met with patient, and dtr for care plan meeting. Discussed patient's progress in PT/OT/SN. Explained Medicare benefit. Encouraged to contact secondary insurance to ensure copay coverage. Explained and provided stroke support group brochure. IDT set DC date for 02/08. Pt is agreeable. Discussed HHC vs OP. IDT recommending OP PT. Pt agreeable. Verbally provided options. Pt/ prefer [facility]. Referral to be made. No DME needs. to transport. Plan: DC home 02/08 with , [facility]. JONO SenaW
[2022-02-05 14:00] VITALS: BP 160/92; PULSE 66; RESP 17; TEMP 36.4; O2SAT 97
--- NOTE | 2022-02-05 14:08 | DS.PCM_ITS ---
Providers Date of Admission: 01/27/22 Primary Care Physician: No Primary Care Phys Consultations 01/30/22 15:43 Consult: Gastroenterology Routine Consulting Provider: [facility] Reason for Consult: Dysphagia, esophageal retention. EMERGENT Consult: No MD Notified: Yes Date Notified: 01/31/22 Time Notified: 11:53 Method of Notification: Verbal Reason For Visit: LT SIDE WEAKNESS DUE TO STROKE Diagnosis Discharge Diagnosis (1) Dysphagia: Status: Acute Code(s): R13.10 - Dysphagia, unspecified Plan 76 year old male with below past medical history hospitalized fo stroke secondary to hypertensive urgency, admitted to TCU with debility, here for rehabilitation, strengthening, prior to discharge home with . * Debility - PT/OT. * Pain - Tylenol 1000mg q8h. * Bowel - Miralax 17gm daily, senna/colace 1 tablet bid prn, Dulcolax 10mg daily prn. * Adult immunization - Administer pneumonia vaccine, covid19 vaccine, flu vaccine. * DVT prophylaxis - Lovenox 40mg sc daily. * Hypertension - Lisinopril 20mg daily, Amlodipine 10mg daily. * Stroke - Aspirin 81mg daily forever, Plavix 75mg daily x 30 days, then stop. * Hyperlipidemia - Atorvastatin 40mg qhs. * Tinea Corporis - Nystatin topical bid. * GERD - Pantoprazole 20mg daily. Medications at Discharge Home Medications amlodipine 10 mg tablet 10 mg PO 2200 30 days #30 tabs 02/05/22 aspirin 81 mg chewable tablet 81 mg PO BREAKFAST 30 days #30 tabs 02/05/22 atorvastatin 40 mg tablet 40 mg PO QHS 30 days #30 tabs 02/05/22 clopidogrel 75 mg tablet 75 mg PO DAILY 19 days #19 tabs 02/05/22 losartan 100 mg tablet 100 mg PO DAILY 30 days #30 tabs 02/05/22 metoprolol tartrate 50 mg tablet 50 mg PO BID 30 days #60 tabs 02/05/22 pantoprazole 40 mg tablet,delayed release 40 mg PO BID 30 days #60 tabs 02/05/22 potassium chloride 20 mEq tablet,extended release(part/cryst) (Klor-Con M) 20 meq PO DAILYCM 30 days #30 tabs 02/05/22 Hospital Course Operations None Procedures EGD Summary of Care Provided Minutes Spent on Discharge: 35 Hospital Course: 76 year old male with below past medical history hospitalized fo stroke secondary to hypertensive urgency, admitted to TCU with debility, here for rehabilitation, strengthening, prior to discharge home with . 02/01/2022 Dr. Cummings performed EGD, noted large hiatal hernia, with ulcers. Recommended Pantoprazole 40mg bid x 8 weeks. Discharge home with 02/08/2022, [facility] PT. Physical Exam Const alert General Appearance: cooperative HEENT normocephalic Eyes PERRL and EOMs intact bilaterally Neck supple, no JVD and no carotid bruits Resp normal respiratory effort, normal air movement and clear to auscultation bilaterally Cardio regular rate and regular rhythm GI normal to inspection, nondistended, normoactive bowel sounds, non-tender and non-distended Extremity normal capillary refill General Extremity: Negative for edema Skin no rashes or lesions noted General Skin Exam: no breakdown Psych affect normal Appearance: appropriate Weight / BMI Weight Weight: 81.737 kg Body Mass Index (BMI) 25.0 ABG / Lab / Microbiology Data Result Diagrams: 02/04/22 05:26 02/04/22 05:26 Microbiology: Microbiology 02/03/22 05:35 Nasal Secretion SARS-CoV-2 Antigen (Rapid) - Final D/C Instructions Discharge Diet: No restrictions Discharge Activity: Return to Normal Activity, May Shower and Use Walker May resume sexual activity in: No Restrictions Weight Bearing Status: Weight bearing as tolerated Call your doctor if you observe: Fever of 101 or Higher, Coldness, Increased Pain, Inability to urinate, Inability to have a bowel movement, Shortness of breath, Dizziness, Fainting spells, Swelling in the ankles, Chest pain and Uncontrolled pain Additional Instructions: Discharge home with 02/08/2022, Enrique Oropeza PT. Please Follow Up With: [facility] Meaningful Use Info Meaningful Use Diagnoses (Choose all that apply): Ischemic CVA CVA Therapy Assessed for PT,OT and/or ST?: Yes Ischemic Stroke Antithrombotic order at d/c?: Yes Dx of Atrial fib/flutter?: No Statins at discharge?: Yes Primary Dx Acute Ischemic CVA?: Yes IV tPA ordered during stay?: No Reason IV t-PA not ordered: Treatment not Indicated Discharge Plan Admission Admit Date/Time: 06/27/22 19:39 Primary Reason for Your Visit: Debility. Attending Provider: Butch Nolasco Chi Primary Care Provider: Care Physician,No Primary Instructions Additional Instructions / Restrictions: Discharge home with 02/08/2022, [facility] PT. Discharge Orders/Prescriptions Prescriptions: New atorvastatin 40 mg Tablet 40 mg PO QHS 30 Days Qty: 30 0RF clopidogrel 75 mg Tablet 75 mg PO DAILY 19 Days Qty: 19 0RF potassium chloride [Klor-Con M20] 20 mEq Tablet,Er Particles/Crystals 20 meq PO DAILYCM 30 Days Qty: 30 0RF amlodipine 10 mg Tablet 10 mg PO 2200 30 Days Qty: 30 0RF pantoprazole 40 mg Tablet,Delayed Release (Dr/Ec) 40 mg PO BID 30 Days Qty: 60 0RF metoprolol tartrate 50 mg Tablet 50 mg PO BID 30 Days Qty: 60 0RF aspirin 81 mg Tablet,Chewable 81 mg PO BREAKFAST 30 Days Qty: 30 0RF losartan 100 mg Tablet 100 mg PO DAILY 30 Days Qty: 30 0RF Referrals / Follow Up: [facility] [Outside] - 02/11/22 1:45 pm (Will see Dr. Quiñones [address] [facility]) Butch Nolasco Chi, MD [COURTESY STAFF PHYSICIAN] - Within 1 Week Disposition Disposition (needs filled in before D/C Order can be placed): Home, Self Care
[2022-02-05 17:40] VITALS: BP 156/82; PULSE 62
[2022-02-05] MEDS: Atorvastatin Calcium 40 MG Tablet PO (20:59)
[2022-02-05] MEDS: amLODIPine 10 MG Tablet PO (21:00)
[2022-02-06] MEDS: Enoxaparin 40 MG/0.4 ML Syringe SC (05:18)
[2022-02-06] MEDS: Menthol/Lanolin/Calamine/Znox 113 GM Tube 1 APPLIC TOPICAL (05:18)
[2022-02-06 05:19] VITALS: BP 134/76; PULSE 64
[2022-02-06] MEDS: Nystatin Powder 15gm Bottle 1 APPLIC TOPICAL (05:19)
[2022-02-06] MEDS: Losartan Potassium 100 MG Tablet PO (05:19)
[2022-02-06] MEDS: Acetaminophen 500 MG Tablet 1000 MG PO ×3 (05:19→22:33)
[2022-02-06] MEDS: Metoprolol Tartrate 50 MG Tablet PO ×2 (05:19→17:53)
[2022-02-06] MEDS: Clopidogrel Bisulfate 75 MG Tablet PO (05:19)
[2022-02-06] MEDS: Pantoprazole Sodium 40 MG Tablet PO ×2 (05:19→17:53)
[2022-02-06] MEDS: Potassium Chloride Oral Tablet 20 MEQ PO (08:05)
[2022-02-06] MEDS: Aspirin 81 MG TAB.CHEW PO (08:06)
[2022-02-06 14:00] VITALS: BP 145/82; PULSE 56; RESP 16; TEMP 36; O2SAT 96
[2022-02-06 17:53] VITALS: BP 156/85; PULSE 67
[2022-02-06 22:00] VITALS: PULSE 63; RESP 16; O2SAT 92
[2022-02-06] MEDS: amLODIPine 10 MG Tablet PO (22:33)
[2022-02-06] MEDS: Atorvastatin Calcium 40 MG Tablet PO (22:34)
[2022-02-07] MEDS: Losartan Potassium 100 MG Tablet PO (05:21)
[2022-02-07] MEDS: Acetaminophen 500 MG Tablet 1000 MG PO ×3 (05:21→21:41)
[2022-02-07] MEDS: Pantoprazole Sodium 40 MG Tablet PO ×2 (05:21→17:39)
[2022-02-07] MEDS: Enoxaparin 40 MG/0.4 ML Syringe SC (05:21)
[2022-02-07 05:22] VITALS: BP 142/82; PULSE 59
[2022-02-07] MEDS: Metoprolol Tartrate 50 MG Tablet PO ×2 (05:22→17:39)
[2022-02-07] MEDS: Clopidogrel Bisulfate 75 MG Tablet PO (05:25)
[2022-02-07] MEDS: Nystatin Powder 15gm Bottle 1 APPLIC TOPICAL (05:27)
[2022-02-07] MEDS: Menthol/Lanolin/Calamine/Znox 113 GM Tube 1 APPLIC TOPICAL (05:27)
[2022-02-07] MEDS: Aspirin 81 MG TAB.CHEW PO (08:38)
[2022-02-07] MEDS: Potassium Chloride Oral Tablet 20 MEQ PO (08:38)
[2022-02-07 08:40] VITALS: RESP 16; O2SAT 98
--- NOTE | 2022-02-07 10:16 | NURSING ---
TIAN Garcia reported that he was working with pt and had pt doing squats holding the windowsill and pt lowered self to far down and had to sit on buttocks but was able to get back up with therapist supervision. DIRECTOR OF CONTRACTS stated that he had worked with pt on getting up off floor yesterday since pt has bed on floor at home. no injury. pt had stated he was trying to see how far he could get down during the squat
[2022-02-07 14:00] VITALS: BP 141/82; PULSE 62; RESP 16; TEMP 36.4; O2SAT 95
--- NOTE | 2022-02-07 14:17 | MDS.RN ---
Information for the mds was obtained from review of the clinical record, interview of resident, staff, and direct observation of resident's care.
--- NOTE | 2022-02-07 15:21 | CASEMGMT ---
Social Work BIMS and PHQ-9 completed for MDS assessment. Sherin Loredo, C[employer] J[employer] SOFTWARE ENGINEER TELEPHOTO INSTALLER
[2022-02-07 17:39] VITALS: PULSE 62
[2022-02-07] MEDS: amLODIPine 10 MG Tablet PO (21:41)
[2022-02-07] MEDS: Atorvastatin Calcium 40 MG Tablet PO (21:42)
[2022-02-07 21:43] VITALS: BP 178/99; PULSE 55
[2022-02-08] MEDS: Losartan Potassium 100 MG Tablet PO (06:23)
[2022-02-08] MEDS: Acetaminophen 500 MG Tablet 1000 MG PO (06:23)
[2022-02-08] MEDS: Pantoprazole Sodium 40 MG Tablet PO (06:23)
[2022-02-08] MEDS: Clopidogrel Bisulfate 75 MG Tablet PO (06:23)
[2022-02-08 06:24] VITALS: BP 145/82; PULSE 62
[2022-02-08] MEDS: Metoprolol Tartrate 50 MG Tablet PO (06:24)
[2022-02-08] MEDS: Enoxaparin 40 MG/0.4 ML Syringe SC (06:24)
--- NOTE | 2022-02-08 06:46 | NURSING ---
Talked with patient this morning regarding discharge today. Went over medications. He stated his medications had been filled and he has them ready to go home. Discussed a PCP, since he does not have one. He stated he would like to go with Dr. Nolasco as his PCP at this time. Encouraged him to make a follow up appt with him as soon as he was able to. He verbalized understanding. Will be discharging home today after 10am. Encouraged him to call with any questions.
[2022-02-08] MEDS: Aspirin 81 MG TAB.CHEW PO (08:04)
[2022-02-08] MEDS: Potassium Chloride Oral Tablet 20 MEQ PO (08:05)
[2022-02-08 10:28] VITALS: BP 153/77; PULSE 56; RESP 18; TEMP 36.1; O2SAT 96
== END 2022-02-08 10:58 | disposition home or self-care (01) | DRG 57 ==
PROVIDERS: Internal Medicine Gastroenterology; Admitting Provider Family Medicine Geriatric Medicine; Visit Provider Family Medicine Geriatric Medicine
PROC: 0DJ08ZZ Inspection of Upper Intestinal Tract, Via Natural or Artificial Opening Endoscopic (ICD-10-PCS; CPT 43235; principal; 2022-02-01 08:00)
DX: I69.354 Hemiplegia and hemiparesis following cerebral infarction affecting left non-dominant side (principal); B35.4 Tinea corporis; M16.12 Unilateral primary osteoarthritis, left hip; I69.322 Dysarthria following cerebral infarction; K21.9 Gastro-esophageal reflux disease without esophagitis; E78.5 Hyperlipidemia, unspecified; I10 Essential (primary) hypertension; Z79.899 Other long term (current) drug therapy; R13.10 Dysphagia, unspecified
CPT/HCPCS: 36415; 80048; 85025; 87811; 88305; 88342; 92523; 92610; 97110; 97116; 97162; 97166; 97530; 97535; 97802; J7050; A4216

== ENCOUNTER 2022-01-27 22:51 | Outpatient (RCR) | payer SELFPAY | END 2022-01-30 23:59 | LOC: EMPH 22:51 | PROVIDERS: Visit Provider Family Medicine Geriatric Medicine | DX: Z03.818 Encounter for observation for suspected exposure to other biological agents ruled out (principal) | CPT/HCPCS: 87811 ==

== ENCOUNTER → 2022-02-14 | Outpatient (CLI) | payer MEDICARE, SELFPAY ==
[2022-02-14 12:40] LABS: Absolute Lymphocyte Count 1.47 X10^3/uL (0.83-4.51); Absolute Neutrophil Count 3.6 X10^3/uL (2.0-7.7); Basophil# 0.03 X10^3/uL; Basophil% 0.5 % (0-1); Eosinophil# 0.24 X10^3/uL; Eosinophils% 4.2 % (0-5); Hematocrit 43.9 % (40-54); Hemoglobin 14.5 g/dL (13.0-16.5); Lymphocyte # 1.47 X10^3/ul (0.83-4.51); Lymphocyte % 25.6 % (19-41); Mean Corpuscular Volume 93.8 fL (80-94); Mean Platelet Vol. 10.2 fl (6.2-12.0); Monocyte# 0.44 X10^3/uL; Monocyte% 7.7 % (0-10); NRBC Flagged by Analyzer 0 % (0-5); Neutrophil # 3.55 X10^3/uL (2.7-7.7); Neutrophil % 61.8 % (47-70); Platelet Count 192 K/mm3 (150-450); RBC Distribution Width SD 44.5 fl (35.1-43.9); Red Blood Count 4.68 M/mm3 (4.6-6.2); White Blood Count 5.7 K/mm3 (4.4-11.0)
[2022-02-14 13:25] LABS: AST(SGOT) 21 U/L (15-37); Alanine Aminotransfer ALT/SGPT 29 U/L (16-61); Albumin, Serum 3.7 g/dL (3.2-5.0); Alkaline Phosphatase 106 U/L (45-117); Anion Gap 6 (5-15); BUN 22 mg/dL (7-18); BUN/Creat Ratio 22.5 RATIO (10-20); Chloride 107 mmol/L (98-107); Creatinine, Serum 0.98 mg/dL (0.70-1.30); EST Glomerular Filtration Rate 80 mL/min (>60); Est Glom Filt Rate - Afr Amer 96 mL/min (>60); Globulin 3.7 g/dL (2.2-4.2); Glucose 120 mg/dL (74-106); PSA,Total - Annual Screen 1.11 ng/mL (0.00-4.00); Potassium 4.1 mmol/L (3.5-5.1); Protein, Total 7.4 g/dL (6.4-8.2); Sodium Level 140 mmol/L (136-145); Thyroid Stim Hormone (TSH) 0.94 uIU/mL (0.358-3.74)
[2022-02-14 13:47] LABS: Hepatitis C Antibody Non-Reactive (Nonreactive); Vitamin D,25 Hydroxy 25.3 ng/mL
== END | disposition home or self-care (01) ==
LOC: POLAB3 12:01
PROVIDERS: Visit Provider Family Medicine Geriatric Medicine
DX: Z13.89 Encounter for screening for other disorder (principal); Z12.5 Encounter for screening for malignant neoplasm of prostate; E55.9 Vitamin D deficiency, unspecified; R53.83 Other fatigue
CPT/HCPCS: 36415; 80053; 82306; 84153; 84443; 85025; 86803; G0103

== ENCOUNTER → 2022-03-20 | Outpatient (CLI) | payer MEDICARE, SELFPAY ==
[2022-03-20 17:00] LABS: Anion Gap 5 (5-15); BUN 19 mg/dL (7-18); BUN/Creat Ratio 21.1 RATIO (10-20); Calcium,Total 9.2 mg/dL (8.5-10.1); Chloride 111 mmol/L (98-107); EST Glomerular Filtration Rate 88 mL/min (>60); Est Glom Filt Rate - Afr Amer 106 mL/min (>60); Glucose 112 mg/dL (74-106); Potassium 3.6 mmol/L (3.5-5.1); Sodium Level 145 mmol/L (136-145)
== END | disposition home or self-care (01) ==
LOC: POLAB3 16:05
PROVIDERS: PCP Family Medicine Geriatric Medicine; Visit Provider Family Medicine Geriatric Medicine
DX: E87.6 Hypokalemia (principal)
CPT/HCPCS: 36415; 80048

== ENCOUNTER → 2022-08-20 | Outpatient (CLI) | payer MEDICARE, SELFPAY ==
[2022-08-20 15:32] LABS: Absolute Lymphocyte Count 1.41 X10^3/uL (0.83-4.51); Absolute Neutrophil Count 2.3 X10^3/uL (2.0-7.7); Basophil# 0.02 X10^3/uL; Basophil% 0.5 % (0-1); Eosinophil# 0.13 X10^3/uL; Eosinophils% 3.1 % (0-5); Hematocrit 41.5 % (40-54); Hemoglobin 14.3 g/dL (13.0-16.5); Lymphocyte # 1.41 X10^3/ul (0.83-4.51); Lymphocyte % 33.1 % (19-41); Mean Corp Hgb Conc 34.5 g/dL (32-36); Mean Corpuscular Hgb 31.1 pg (27.0-32.0); Mean Corpuscular Volume 90.2 fL (80-94); Mean Platelet Vol. 11.1 fl (6.2-12.0); Monocyte# 0.34 X10^3/uL; NRBC Flagged by Analyzer 0 % (0-5); Neutrophil # 2.34 X10^3/uL (2.7-7.7); Neutrophil % 54.8 % (47-70); Platelet Count 149 K/mm3 (150-450); RBC Distribution Width CV 13.3 % (11.6-14.6); RBC Distribution Width SD 44.2 fl (35.1-43.9); White Blood Count 4.3 K/mm3 (4.4-11.0)
[2022-08-20 15:46] LABS: Vitamin D,25 Hydroxy 17.7 ng/mL
[2022-08-20 15:53] LABS: ALB/GLOB Ratio 1.1 RATIO (0.9-2.4); AST(SGOT) 26 U/L (15-37); Alanine Aminotransfer ALT/SGPT 28 U/L (16-61); Albumin, Serum 3.5 g/dL (3.2-5.0); Alkaline Phosphatase 106 U/L (45-117); Anion Gap 7 (5-15); BUN 13 mg/dL (7-18); BUN/Creat Ratio 13.6 RATIO (10-20); Calcium,Total 8.7 mg/dL (8.5-10.1); Chloride 105 mmol/L (98-107); Creatinine, Serum 0.96 mg/dL (0.70-1.30); EST Glomerular Filtration Rate 82 mL/min (>60); Est Glom Filt Rate - Afr Amer 99 mL/min (>60); Globulin 3.3 g/dL (2.2-4.2); Glucose 90 mg/dL (74-106); Potassium 3.6 mmol/L (3.5-5.1); Protein, Total 6.8 g/dL (6.4-8.2); Sodium Level 142 mmol/L (136-145); Thyroid Stim Hormone (TSH) 1.56 uIU/mL (0.358-3.74)
== END | disposition home or self-care (01) ==
LOC: POLAB3 13:51
PROVIDERS: PCP Family Medicine Geriatric Medicine; Visit Provider Family Medicine Geriatric Medicine
DX: I10 Essential (primary) hypertension (principal); E55.9 Vitamin D deficiency, unspecified
CPT/HCPCS: 36415; 80053; 82306; 84443; 85025

== ENCOUNTER → 2023-02-18 | Outpatient (CLI) | payer MEDICARE, SELFPAY ==
--- NOTE | 2023-02-18 14:25 | RAD_ITS ---
STUDY: XR Elbow Min 3 Views REASON FOR EXAM: Male, 77 years old. PAIN TECHNIQUE: XR Elbow Min 3 Views RIGHT COMPARISON: None. FINDINGS: Normal visualized humerus, radius and ulna. Normal radiocapitellar and ulnotrochlear articulations. Anterior humeral line and radiocapitellar line are preserved. Diffuse soft tissue swelling around the elbow joint and olecranon. Positive fat pad sign, suggesting a radiographically occult fracture of the elbow. RAD/Elbow min 3 Views IMPRESSION: Positive fat pad sign, suggesting a radiographically occult fracture of the elbow. Diffuse soft tissue swelling around the elbow joint and olecranon. Electronically Signed: Jeffry Tucker MD at 14:55 EDT ,
[2023-02-18 16:31] LABS: Absolute Lymphocyte Count 1.77 X10^3/uL (0.83-4.51); Absolute Neutrophil Count 2.8 X10^3/uL (2.0-7.7); Basophil# 0.04 X10^3/uL; Basophil% 0.8 % (0-1); Eosinophil# 0.17 X10^3/uL; Eosinophils% 3.3 % (0-5); Hematocrit 44.2 % (40-54); Hemoglobin 14.4 g/dL (13.0-16.5); Lymphocyte # 1.77 X10^3/ul (0.83-4.51); Lymphocyte % 34.6 % (19-41); Mean Corp Hgb Conc 32.6 g/dL (32-36); Mean Corpuscular Hgb 30.9 pg (27.0-32.0); Mean Corpuscular Volume 94.8 fL (80-94); Mean Platelet Vol. 10.7 fl (6.2-12.0); Monocyte# 0.37 X10^3/uL; Monocyte% 7.2 % (0-10); NRBC Flagged by Analyzer 0 % (0-5); Neutrophil # 2.75 X10^3/uL (2.7-7.7); Neutrophil % 53.9 % (47-70); Platelet Count 168 K/mm3 (150-450); RBC Distribution Width CV 13.5 % (11.6-14.6); RBC Distribution Width SD 47.4 fl (35.1-43.9); Red Blood Count 4.66 M/mm3 (4.6-6.2); White Blood Count 5.1 K/mm3 (4.4-11.0)
[2023-02-18 17:04] LABS: AST(SGOT) 23 U/L (15-37); Alanine Aminotransfer ALT/SGPT 30 U/L (16-61); Albumin, Serum 3.6 g/dL (3.2-5.0); Alkaline Phosphatase 113 U/L (45-117); Anion Gap 5 (5-15); BUN 14 mg/dL (7-18); BUN/Creat Ratio 11.6 RATIO (10-20); Calcium,Total 8.7 mg/dL (8.5-10.1); Chloride 109 mmol/L (98-107); Creatinine, Serum 1.21 mg/dL (0.70-1.30); EST Glomerular Filtration Rate 62 mL/min (>60); Est Glom Filt Rate - Afr Amer 75 mL/min (>60); Globulin 3.5 g/dL (2.2-4.2); Glucose 74 mg/dL (74-106); Potassium 4.2 mmol/L (3.5-5.1); Protein, Total 7.1 g/dL (6.4-8.2); Sodium Level 143 mmol/L (136-145); Thyroid Stim Hormone (TSH) 1.56 uIU/mL (0.358-3.74)
[2023-02-18 17:48] LABS: Vitamin D,25 Hydroxy 28.3 ng/mL
== END | disposition home or self-care (01) ==
PROVIDERS: PCP Family Medicine Geriatric Medicine; Referring Provider Family Medicine Geriatric Medicine; Visit Provider Family Medicine Geriatric Medicine
DX: I10 Essential (primary) hypertension (principal); E55.9 Vitamin D deficiency, unspecified; M25.521 Pain in right elbow
CPT/HCPCS: 36415; 73080; 80053; 82306; 84443; 85025

== ENCOUNTER → 2023-02-21 | Outpatient (CLI) | payer MEDICARE, SELFPAY ==
--- NOTE | 2023-02-21 09:52 | US_ITS ---
HISTORY: CHRONIC GASTRIC ULCER. TECHNIQUE: Lopez scale and color doppler imaging was performed of the right upper quadrant. 96 images. COMPARISON: None. FINDINGS: LIVER: 14.4 cm in length. Mildly echogenic without focal lesion demonstrated. No intrahepatic ductal dilatation. MAIN PORTAL VEIN: Patent. COMMON BILE DUCT: 4 mm in diameter. GALLBLADDER: No gallstones in the distended gallbladder. 1-2 mm wall thickness, within normal limits. No pericholecystic fluid. Sonographic Ferrari sign negative. PANCREAS: Partially obscured due to overlying bowel gas. RIGHT KIDNEY: 9.7 cm in length with a cortical thickness of 1.9 cm. No hydronephrosis or gross renal mass demonstrated. US/Abdomen Limited IMPRESSION: No sonographic evidence of cholelithiasis. Mild hepatic steatosis. Electronically Signed: Aminata Alexandre MD at 13:48 EDT ,
== END | disposition home or self-care (01) ==
LOC: US 09:51
PROVIDERS: PCP Family Medicine Geriatric Medicine; Referring Provider Family Medicine Geriatric Medicine; Visit Provider Family Medicine Geriatric Medicine
DX: K25.7 Chronic gastric ulcer without hemorrhage or perforation (principal)
CPT/HCPCS: 76705

== ENCOUNTER → 2023-03-25 | Outpatient (CLI) | payer MEDICARE, SELFPAY ==
--- NOTE | 2023-03-25 08:55 | AAAS_ITS ---
Reason For Study: Screening Aorta Measurements Aorta Doppler Measurements Proximal aorta measures2.14 x 2.16cm. in cross- Peak systolic flow velocities within the proximal sectional axis. aorta measure 94.1 cm/sec. Proximal aorta measures2.14cm. in longitudinal Peak systolic flow velocities within the mid aorta axis. measure 94.1 cm/sec. Mid aorta measures1.83 x 1.83cm. in cross- Peak systolic flow velocities within the distal sectional axis. aorta measure 94.1 cm/sec. Mid aorta measures1.87cm. in longitudinal axis. Distal aorta measures1.80 x 1.83cm. in cross- sectional axis. Distal aorta measures1.82cm. in longitudinal axis. Left Iliac Artery Left iliac artery measures 1.25 x 1.26 cm. in the cross-sectional axis. Left iliac artery measures 1.23 cm. in the longitudinal axis. Peak systolic velocity in the left iliac artery measures 181.1 cm/sec. Right Iliac Artery Right iliac artery measures 1.32 x 1.34 cm. in the cross-sectional axis. Right iliac artery measures 1.34 cm. in the longitudinal axis. Peak systolic velocity in the right iliac artery measures 83.2 cm/sec. Procedure Aorta IVC Iliac vasculature or bypass grafts 32603. Exam performed in department. VL/AAA Screening Interpretation Summary Widely patent abdominal aorta with maximum diameter approximately 2.14 x 2.16 c m which is normal. Normal aortic flow velocity. Normal left common iliac artery 1.25 x 1.26 cm in diameter Normal right common iliac artery at 1.32 x 1.34 cm in diameter Ordering Physician: Butch Nolasco Chi Referring Physician: Butch Nolasco Chi Performed By: Sherry White RVT
== END | disposition home or self-care (01) ==
LOC: CVS 08:47
PROVIDERS: PCP Family Medicine Geriatric Medicine; Referring Provider Family Medicine Geriatric Medicine; Visit Provider Family Medicine Geriatric Medicine
DX: Z00.00 Encounter for general adult medical examination without abnormal findings (principal)
CPT/HCPCS: 76706

== ENCOUNTER → 2024-05-24 | Outpatient (CLI) | payer MEDICARE, SELFPAY ==
[2024-05-24 14:42] LABS: Absolute Lymphocyte Count 2.01 X10^3/uL (0.83-4.51); Absolute Neutrophil Count 3.6 X10^3/uL (2.0-7.7); Basophil# 0.04 X10^3/uL; Basophil% 0.6 % (0-1); Eosinophil# 0.15 X10^3/uL; Eosinophils% 2.4 % (0-5); Hematocrit 42.4 % (40-54); Hemoglobin 14.1 g/dL (13.0-16.5); Lymphocyte # 2.01 X10^3/ul (0.83-4.51); Lymphocyte % 32.2 % (19-41); Mean Corp Hgb Conc 33.3 g/dL (32-36); Mean Corpuscular Hgb 31.3 pg (27.0-32.0); Mean Corpuscular Volume 94.2 fL (80-94); Mean Platelet Vol. 10.7 fl (6.2-12.0); Monocyte# 0.43 X10^3/uL; Monocyte% 6.9 % (0-10); NRBC Flagged by Analyzer 0 % (0-5); Neutrophil # 3.59 X10^3/uL (2.7-7.7); Neutrophil % 57.6 % (47-70); Platelet Count 190 K/mm3 (150-450); RBC Distribution Width CV 13.2 % (11.6-14.6); RBC Distribution Width SD 46.4 fl (35.1-43.9); White Blood Count 6.2 K/mm3 (4.4-11.0)
[2024-05-24 15:22] LABS: Vitamin D,25 Hydroxy 16.7 ng/mL
[2024-05-24 15:26] LABS: ALB/GLOB Ratio 1.1 RATIO (0.9-2.4); AST(SGOT) 24 U/L (15-37); Alanine Aminotransfer ALT/SGPT 27 U/L (16-61); Albumin, Serum 3.6 g/dL (3.2-5.0); Alkaline Phosphatase 95 U/L (45-117); Anion Gap 3 (5-15); BUN 22 mg/dL (7-18); BUN/Creat Ratio 21.6 RATIO (10-20); Calcium,Total 9.2 mg/dL (8.5-10.1); Chloride 111 mmol/L (98-107); Creatinine, Serum 1.02 mg/dL (0.70-1.30); EST Glomerular Filtration Rate 75 mL/min (>60); Est Glom Filt Rate - Afr Amer 91 mL/min (>60); Globulin 3.4 g/dL (2.2-4.2); Glucose 92 mg/dL (74-106); Sodium Level 143 mmol/L (136-145)
== END | disposition home or self-care (01) ==
LOC: LAB 13:52
PROVIDERS: PCP Family Medicine Geriatric Medicine; Referring Provider Family Medicine Geriatric Medicine; Visit Provider Family Medicine Geriatric Medicine
DX: I10 Essential (primary) hypertension (principal); E55.9 Vitamin D deficiency, unspecified
CPT/HCPCS: 36415; 80053; 82306; 84443; 85025

== ENCOUNTER → 2024-12-28 | Outpatient (CLI) | payer MEDICARE, SELFPAY ==
--- NOTE | 2024-12-28 12:41 | CT_ITS ---
EXAM: NONCONTRAST CT SCAN OF THE HEAD CLINICAL HISTORY: Stroke COMPARISON: None TECHNIQUE: Serial axial series through the head were obtained without contrast. 2-D coronal and sagittal reformats were then obtained. FINDINGS: Brain: There is no acute large territorial infarct, intracranial hemorrhage, midline shift or mass effect. There are atherosclerotic vascular calcifications involving the bilateral carotid siphons. The sella and pineal gland regions appear unremarkable. There is low-density in the deep white matter on the right and left consistent with chronic ischemic change. There is no evidence of cerebellar tonsillar herniation. Ventricles: There is no acute hydrocephalus. Basilar cisterns are patent. Paranasal sinuses: Well-aerated Mastoid air cells: Well-aerated. Calvarium: The bony calvarium is intact. Orbits: The bilateral globes are symmetric, without retrobulbar compressive mass lesion or hemorrhage. Miscellaneous: CT/Brain/Head without Contrast IMPRESSION: There is low-density in the deep white matter on the right and left consistent with chronic ischemic change. Consider CT perfusion or MRI with diffusion scan, to exclude an acute component. Reading Location: [facility]
--- NOTE | 2024-12-28 12:43 | RAD_ITS ---
PROCEDURE: CHEST PA AND LATERAL 12/28/2024 REASON FOR EXAM: SOB TECHNIQUE: Frontal and lateral views of the chest. COMPARISON: None available FINDINGS: Question possibility of mild interstitial edema. The lungs otherwise appear clear. No pleural effusion identified. Large hiatal hernia. Cardiac silhouette appears within limits for size. Ectatic appearing thoracic aorta with atherosclerotic change at the arch. Lower lumbar spondylosis/discogenic change. RAD/Chest PA and Lateral IMPRESSION: Question possibility of mild interstitial edema. The lungs otherwise appear cl ear. Large hiatal hernia. Reading Location: [id number]
[2024-12-28 13:34] LABS: Absolute Lymphocyte Count 1.66 X10^3/uL (0.83-4.51); Absolute Neutrophil Count 3.9 X10^3/uL (2.0-7.7); Basophil# 0.04 X10^3/uL; Basophil% 0.6 % (0-1); Eosinophil# 0.14 X10^3/uL; Eosinophils% 2.2 % (0-5); Hemoglobin 14.6 g/dL (13.0-16.5); Lymphocyte # 1.66 X10^3/ul (0.83-4.51); Lymphocyte % 26.6 % (19-41); Mean Corp Hgb Conc 33.2 g/dL (32-36); Mean Corpuscular Hgb 31.6 pg (27.0-32.0); Mean Corpuscular Volume 95.2 fL (80-94); Mean Platelet Vol. 10.8 fl (6.2-12.0); NRBC Flagged by Analyzer 0 % (0-5); Neutrophil # 3.86 X10^3/uL (2.7-7.7); Neutrophil % 62.1 % (47-70); Platelet Count 193 K/mm3 (150-450); RBC Distribution Width CV 13.2 % (11.6-14.6); RBC Distribution Width SD 46.8 fl (35.1-43.9); Red Blood Count 4.62 M/mm3 (4.6-6.2); White Blood Count 6.2 K/mm3 (4.4-11.0)
[2024-12-28 14:11] LABS: ALB/GLOB Ratio 1.3 RATIO (0.9-2.4); AST(SGOT) 24 U/L (<=37); Alanine Aminotransfer ALT/SGPT 19 U/L (<=46); Alkaline Phosphatase 138 U/L (40-129); Anion Gap 11 (5-15); BUN 21 mg/dL (4-19); BUN/Creat Ratio 18.6 RATIO (10-20); Calcium,Total 9.2 mg/dL (7.6-11.0); Carbon Dioxide 24.4 mmol/L (21.0-32.0); Chloride 108 mmol/L (98-108); Creatinine, Serum 1.14 mg/dL (0.70-1.20); EST Glomerular Filtration Rate 66 (>60); Glucose 102 mg/dL (70-99); Pro- Brain NATRIURETIC PEPTIDE 3105 pg/mL (<=1800); Sodium Level 143 mmol/L (133-145); Total Bilirubin 2.12 mg/dL (0.00-1.30)
--- NOTE | 2024-12-28 14:49 | CT_ITS ---
EXAM: CT Angiography Chest Without and With Intravenous Contrast CLINICAL INDICATION: D-DIMNER ELEVATED TECHNIQUE: Axial computed tomographic angiography images of the chest without and with intravenous contrast. This CT exam was performed using one or more of the following dose reduction techniques: automated exposure control, adjustment of the mA and/or kV according to patient size, and/or use of iterative reconstruction technique. MIP reconstructed images were created and reviewed. COMPARISON: No relevant prior studies available. FINDINGS: PULMONARY ARTERIES: Unremarkable. No pulmonary embolism. AORTA: No acute findings. No thoracic aortic aneurysm. LUNGS AND PLEURAL SPACES: Lung emphysema/COPD. Bilateral pleural effusions, greater on the right. No mass. No consolidation. No pneumothorax. HEART: Unremarkable. No cardiomegaly. No significant pericardial effusion. No evidence of RV dysfunction. MEDIASTINUM: Large esophageal hiatal hernia. BONES/JOINTS: No acute fracture. No dislocation. SOFT TISSUES: Unremarkable. LYMPH NODES: Unremarkable. No enlarged lymph nodes. CT/CTA Chest W/WO Contrast IMPRESSION: 1. No pulmonary embolism. 2. Large esophageal hiatal hernia. 3. Lung emphysema/COPD. Bilateral pleural effusions, greater on the right. Reading Location: [facility]
== END | disposition home or self-care (01) ==
LOC: CT 12:40
PROVIDERS: PCP Family Medicine Geriatric Medicine; Referring Provider Family Medicine Geriatric Medicine; Visit Provider Family Medicine Geriatric Medicine
DX: I63.9 Cerebral infarction, unspecified (principal); R79.89 Other specified abnormal findings of blood chemistry; R06.02 Shortness of breath
CPT/HCPCS: 36415; 70450; 71046; 71275; 80053; 83880; 84443; 85025; 85379; Q9967

== ENCOUNTER 2025-01-07 13:04 | Outpatient (CLI) | payer MEDICARE, SELFPAY ==
--- OUTSIDE RECORDS SUMMARY | 2025-01-07 13:10 | XMS RPT_ITS | CCD ---
Author Organization [facility] CliniSymd Care Team Providers Care Facilities Painter Name Role Phone Care Physician, No Primary Primary Care Provider Unavailable Gaurav, Dr. Butch Rhodes Admit Provider Gaurav, Dr. Butch Rhodes Other Provider Friend, Dr. Gross Attending Provider Gaurav, Dr. Butch Rhodes Primary Care Provider Gaurav, Dr. Butch Rhodes Referring Provider MD Yousuf Cox Attending Provider Dr. Can Alva Attending Provider Gaurav QUINONEZ, Dr. Butch Rhodes Primary Care Provider Gaurav QUINONEZ, Dr. Butch Rhodes Attending Provider [phone] Gaurav QUINONEZ, Dr. Butch Rhodes Referring Provider Gaurav, Butch Chi Attending Unavailable Gaurav, Butch Chi Primary Care Unavailable Gaurav, Butch Chi Referring Unavailable Gaurav, Butch Chi Referring Unavailable Gaurav, Butch Chi Attending Unavailable Gaurav, Butch Chi Primary Care Unavailable Agurav, Butch Chi Referring Unavailable Gaurav, Butch Chi Attending Unavailable Gaurav, Butch Chi Primary Care Unavailable Gaurav, Butch Chi Referring Unavailable Gaurav, Butch Chi Attending Unavailable Gaurav, Butch Chi Primary Care Unavailable Medications Current Medications Medication Drug Class(es) Dates Sig (Normalized) Sig (Original) aspirin 81 mg chewable tablet (6 sources) Platelet Aggregation Inhibitor, Nonsteroidal Anti-inflammatory Drug Start: 02-05-2022 take 1 tablet by mouth at breakfast Aspirin 81 mg Tablet,Chewable Active 81 mg PO WITH BREAKFAST February 05, 2022 12:00am losartan potassium 100 mg oral tablet (6 sources) Angiotensin 2 Receptor Fran Start: 02-05-2022 take 1 tablet by mouth once daily Losartan 100 mg Tablet Active 100 mg PO DAILY 30 February 05, 2022 12:00am metoprolol tartrate 50 mg oral tablet (6 sources) beta-Adrenergic Fran Start: 02-05-2022 take 1 tablet by mouth twice daily Metoprolol Tartrate 50 mg Tablet Active 50 mg PO TWICE A DAY 60 February 05, 2022 12:00am Completed/Discontinued Medications Medication Drug Class(es) Dates Sig (Normalized) Sig (Original) amLODIPine 10 mg oral tablet (6 sources) Dihydropyridine Calcium Channel Fran Start: 02-05-2022 End: 02-26-2023 Amlodipine 10 mg Tablet Discontinued 10 mg PO 0 February 05, 2022 12:00am February 26, 2023 12:45pm atorvastatin 40 mg oral tablet (6 sources) HMG-CoA Reductase Inhibitor Start: 02-05-2022 End: 02-26-2023 take 1 tablet by mouth at bedtime Atorvastatin 40 mg Tablet Discontinued 40 mg PO AT BEDTIME February 05, 2022 12:00am February 26, 2023 12:46pm clopidogrel 75 mg oral tablet (6 sources) P2Y12 Platelet Inhibitor Start: 02-05-2022 End: 02-26-2023 take 1 tablet by mouth once daily Clopidogrel 75 mg Tablet Discontinued 75 mg PO DAILY 19 February 05, 2022 12:00am February 26, 2023 12:46pm pantoprazole 40 mg delayed release oral tablet (6 sources) Proton Pump Inhibitor Start: 02-05-2022 End: 02-26-2023 take 1 tablet by mouth twice daily Pantoprazole 40 mg Tablet,Delayed Release (Dr/Ec) Discontinued 40 mg PO TWICE A DAY 60 February 05, 2022 12:00am February 26, 2023 12:46pm microencapsulated potassium chloride 20 meq extended release oral tablet (6 sources) Start: 02-05-2022 End: 02-26-2023 Potassium Chloride (Klor-Con M20) 20 mEq Tablet,Er Particles/Laura ls Discontinued 20 meq PO DAILY WITH MEALS February 05, 2022 12:00am February 26, 2023 12:46pm Problems Problem Classification Problem Date Documented Da te Episodic/Chronic Acute cerebrovascular disease (1 source) Cerebral infarction, unspecified; Translations: [Cerebral infarction, unspecified] Onset: 01-02-2025 Chronic Essential hypertension (1 source) Essential (primary) hypertension; Translations: [Essential (primary) hypertension] Onset: 06-14-2024 Chronic Hypertension with complications and secondary hypertension (10 sources) Hypertensive urgency ; Translations: [Hypertensive urgency] Chronic Malaise and fatigue (10 sources) Asthenia; Translations: [Other malaise] Episodic Osteoarthritis (10 sources) Osteoarthritis of left hip joint; Translations: [Unilateral primary osteoarthritis, left hip] Chronic Other connective tissue disease (2 sources) Bursitis of olecranon of right elbow; Translations: [Olecranon bursitis, right elbow] 02-26-2023 Episodic Other connective tissue disease (1 source) Olecranon bursitis, right elbow; Translations: [Olecranon bursitis] 02-26-2023 Episodic Other gastrointestinal disorders (6 sources) Dysphagia; Translations: [Dysphagia, unspecified] 01-31-2022 Episodic Other gastrointestinal disorders (2 sources) Dysphagia, unspecified; Translations: [Dysphagia, unspecified] Episodic Other lower respiratory disease (7 sources) Nodule of lung; Translations: [Solitary pulmonary nodule] 01-27-2022 Episodic Other lower respiratory disease (3 sources) Solitary pulmonary nodule; Translations: [Solitary pulmonary nodule] Episodic Other lower respiratory disease (1 source) Shortness of breath; Translations: [Shortness of breath] Onset: 01-07-2025 Episodic Other nervous system disorders (7 sources) Dysarthria; Translations: [Dysarthria and anarthria] 01-27-2022 Episodic Other nervous system disorders (3 sources) Dysarthria and anarthria; Translations: [Dysarthria] Episodic Other non-traumatic joint disorders (1 source) Pain in right elbow; Translations: [Pain in joint, upper arm] 02-26-2023 Episodic Paralysis (10 sources) Left hemiparesis; Translations: [Hemiplegia, unspecified affecting left nondominant side] Chronic Transient cerebral ischemia (1 source) Transient cerebral ischemic attack, unspecified; Translations: [Transient cerebral ischemic attack, unspecified] Onset: 01-07-2025 Chronic Results Test Name Value Interpretation Reference Range Facility Absolute lymphocyte countOrd ered By: Butch Nolasco on 12-28-2024 Lymphocytes Auto (Unsp spec) [#/Vol] 1.66 10*3/uL 0.83-4.51 [facility] Absolute neutrophil countOrd ered By: Butch Nolasco on 12-28-2024 Neutrophils (Bld) [#/Vol] 3.9 10*3/uL 2.0-7.7 [facility] Anion gap in Serum or Plasma Ordered By: Butch Gaurav on 12-28-2024 Anion gap [Moles/Vol] 11 mmol/L 5-15 [facility] Automated lymphocyte count a s percentage of total leukocytesOrdered By: Butch Nolasco on 12-28-2024 Lymphocytes/100 WBC Auto (Unsp spec) 26.6 % 19-41 [facility] BUN/creatinine ratioOrdered By: Butch Gaurav on 12-28-2024 Urea nitrogen/Creatinine [Mass ratio] 18.6 mg/mg 10-20 [facility] Basophil percentageOrdered B y: Butch Gaurav on 12-28-2024 Basophils/100 WBC (Bld) 0.6 % 0-1 [facility] Bilirubin, totalOrdered By: Butch Nolasco on 12-28-2024 Bilirubin [Mass/Vol] 2.12 mg/dL High 0.00-1.30 [facility] Brain/Head without Contrasto n 12-28-2024 Brain/Head without Contrast [facility] Imaging Services [address] [place] [id number] Brain/Head without Contrast MR#: [id number] Acct: [id number] Name: Ebenezer LYNNE Rep #: [id number] : 1945 79 From: Regulo العراقي MD PCP: Dr. Butch Nolasco MD Status: REG CLI Study: Brain/Head without Contrast Date of Exam: 12/02 03/27 Exam# [id number] Ordering Dr: Butch Nolasco MD EXAM: NONCONTRAST CT SCAN OF THE HEAD CLINICAL HISTORY: Stroke COMPARISON: None TECHNIQUE: Serial axial series through the head were obtained without contrast. 2-D coronal and sagittal reformats were then obtained. FINDINGS: Brain: There is no acute large territorial infarct, intracranial hemorrhage, midline shift or mass effect. There are atherosclerotic vascular calcifications involving the bilateral carotid siphons. The sella and pineal gland regions appear unremarkable. There is low-density in the deep white matter on the right and left consistent with chronic ischemic change. There is no evidence of cerebellar tonsillar herniation. Ventricles: There is no acute hydrocephalus. Basilar cisterns are patent. Paranasal sinuses: Well-aerated Mastoid air cells: Well-aerated. Calvarium: The bony calvarium is intact. Orbits: The bilateral globes are symmetric, without retrobulbar compressive mass lesion or hemorrhage. Miscellaneous: CT/Brain/Head without Contrast IMPRESSION: There is low-density in the deep white matter on the right and left consistent with chronic ischemic change. Consider CT perfusion or MRI with diffusion scan, to exclude an acute component. Reading Location: [facility] CC: Dr. Butch Nolasco MD Help Desk Operator: Signed Normal [facility] CBC W/Diff, Automatedon 05- Absolute Lymph 1.66 X10 3/uL Normal 0.83-4.51 [facility] Comment on above: Performed By: #### L 500.4050, L100.0100, L300.8000, L503.7505, L501.9520 #### [facility] [address] [place], [address] Absolute Neut 3.9 X10 3/uL Normal 2.0-7.7 [facility] Comment on above: Performed By: #### L 500.4050, L100.0100, L300.8000, L503.7505, L501.9520 #### [facility] [address] [place], [address] Basophils/100 WBC (Bld) 0.6 % Normal 0-1 [facility] Comment on above: Performed By: #### L 500.4050, L100.0100, L300.8000, L503.7505, L501.9520 #### [facility] [address] [place], [address] Eosinophils/100 WBC (Bld) 2.2 % Normal 0-5 [facility] Comment on above: Performed By: #### L 500.4050, L100.0100, L300.8000, L503.7505, L501.9520 #### [facility] [address] [place], [address] Erythrocyte distribution width (RBC) [Ratio] 13.2 % Normal 11.6-14.6 [facility] Comment on above: Performed By: #### L 500.4050, L100.0100, L300.8000, L503.7505, L501.9520 #### [facility] [address] [place], [address] Hematocrit (Bld) [Volume fraction] 44.0 % Normal 40-54 [facility] Comment on above: Performed By: #### L 500.4050, L100.0100, L300.8000, L503.7505, L501.9520 #### [facility] [address] [place], [address] Hemoglobin (Bld) [Mass/Vol] 14.6 g/dL Normal 13.0-16.5 [facility] Comment on above: Performed By: #### L 500.4050, L100.0100, L300.8000, L503.7505, L501.9520 #### [facility] [address] [place], [address] IG% 0.500 Normal 0.0-0.9 [facility] Comment on above: Result Comment: IG% - Immature Granulocytes (promyelocytes, myelocytes and metamyelocytes) > 1% indicates that a LEFT SHIFT is Present. Performed By: #### L 500.4050, L100.0100, L300.8000, L503.7505, L501.9520 #### [facility] [address] [place], [address] Lymphocytes/100 WBC (Bld) 26.6 % Normal 19-41 [facility] Comment on above: Performed By: #### L 500.4050, L100.0100, L300.8000, L503.7505, L501.9520 #### [facility] [address] [place], [address] MCH (RBC) [Entitic mass] 31.6 pg Normal 27.0-32.0 [facility] Comment on above: Performed By: #### L 500.4050, L100.0100, L300.8000, L503.7505, L501.9520 #### [facility] [address] [place], [address] MCHC (RBC) [Mass/Vol] 33.2 g/dL Normal 32-36 [facility] Comment on above: Performed By: #### L 500.4050, L100.0100, L300.8000, L503.7505, L501.9520 #### [facility] [address] [place], [address] MCV (RBC) [Entitic vol] 95.2 fL High 80-94 [facility] Comment on above: Performed By: #### L 500.4050, L100.0100, L300.8000, L503.7505, L501.9520 #### [facility] [address] [place], [address] Monocytes/100 WBC (Bld) 8.0 % Normal 0-10 [facility] Comment on above: Performed By: #### L 500.4050, L100.0100, L300.8000, L503.7505, L501.9520 #### [facility] [address] [place], [address] Neutrophils/100 WBC (Bld) 62.1 % Normal 47-70 [facility] Comment on above: Performed By: #### L 500.4050, L100.0100, L300.8000, L503.7505, L501.9520 #### [facility] [address] [place], [address] Nucleated RBC (Bld) [#/Vol] 0 10*3/uL Normal 0-5 [facility] Comment on above: Performed By: #### L 500.4050, L100.0100, L300.8000, L503.7505, L501.9520 #### [facility] [address] [place], [address] Platelet mean volume (Bld) [Entitic vol] 10.8 fL Normal 6.2-12.0 [facility] Comment on above: Performed By: #### L 500.4050, L100.0100, L300.8000, L503.7505, L501.9520 #### [facility] [address] [place], [address] Platelets (Bld) [#/Vol] 193 10*3/uL Normal 150-450 [facility] Comment on above: Performed By: #### L 500.4050, L100.0100, L300.8000, L503.7505, L501.9520 #### [facility] [address] [place], [address] RBC (Bld) [#/Vol] 4.62 10*6/uL Normal 4.6-6.2 [facility] Comment on above: Performed By: #### L 500.4050, L100.0100, L300.8000, L503.7505, L501.9520 #### [facility] [address] [place], [address] RDW SD 46.8 fl High 35.1-43.9 [facility] Comment on above: Performed By: #### L 500.4050, L100.0100, L300.8000, L503.7505, L501.9520 #### [facility] [address] [place], [address] WBC (Bld) [#/Vol] 6.2 10*3/uL Normal 4.4-11.0 [facility] Comment on above: Performed By: #### L 500.4050, L100.0100, L300.8000, L503.7505, L501.9520 #### [facility] [address] [place], [place], [address] CTA Chest W/WO Contraston CTA Chest W/WO Contrast [facility] Imaging Services [address] [place], [place] [address] CTA Chest W/WO Contrast MR#: [id number] Acct: [id number] Name: Ebenezer LYNNE Rep #: [id number] : 1945 M 79 From: Andre Tena MD PCP: Dr. Butch Nolasco MD Status: REG CLI Study: CTA Chest W/WO Contrast Date of Exam: 12/28/24 Exam# [id number] Ordering Dr: Butch Nolasco MD EXAM: CT Angiography Chest Without and With Intravenous Contrast CLINICAL INDICATION: D-DIMNER ELEVATED TECHNIQUE: Axial computed tomographic angiography images of the chest without and with intravenous contrast. This CT exam was performed using one or more of the following dose reduction techniques: automated exposure control, adjustment of the mA and/or kV according to patient size, and/or use of iterative reconstruction technique. MIP reconstructed images were created and reviewed. COMPARISON: No relevant prior studies available. FINDINGS: PULMONARY ARTERIES: Unremarkable. No pulmonary embolism. AORTA: No acute findings. No thoracic aortic aneurysm. LUNGS AND PLEURAL SPACES: Lung emphysema/COPD. Bilateral pleural effusions, greater on the right. No mass. No consolidation. No pneumothorax. HEART: Unremarkable. No cardiomegaly. No significant pericardial effusion. No evidence of RV dysfunction. MEDIASTINUM: Large esophageal hiatal hernia. BONES/JOINTS: No acute fracture. No dislocation. SOFT TISSUES: Unremarkable. LYMPH NODES: Unremarkable. No enlarged lymph nodes. CT/CTA Chest W/WO Contrast IMPRESSION: 1. No pulmonary embolism. 2. Large esophageal hiatal hernia. 3. Lung emphysema/COPD. Bilateral pleural effusions, greater on the right. Reading [facility] CC: Dr. Butch Nolasco MD Help Desk Operator: Signed Normal [facility] Carbon dioxide, total [Moles /volume] in Central venous bloodOrdered By: Butch Nolasco on 12-28-2024 CO2 [Moles/Vol] 24.4 mmol/L 21.0-32.0 [facility] Chest PA and Lateralon 12-28 Chest PA and Lateral [facility] Imaging Services [address] [place] [address] Chest PA and Lateral MR#: [id number] Acct: [id number] Name: Ebenezer LYNNE Rep #: [id number] : 1945 M 79 From: Can Monsivais MD PCP: Dr. Butch Nolasco MD Status: REG CLI Study: Chest PA and Lateral Date of Exam: 12/28/24 Exam# [id number] Ordering Dr: Butch Nolasco MD PROCEDURE: CHEST PA AND LATERAL 12/28/2024 REASON FOR EXAM: SOB TECHNIQUE: Frontal and lateral views of the chest. COMPARISON: None available FINDINGS: Question possibility of mild interstitial edema. The lungs otherwise appear clear. No pleural effusion identified. Large hiatal hernia. Cardiac silhouette appears within limits for size. Ectatic appearing thoracic aorta with atherosclerotic change at the arch. Lower lumbar spondylosis/discogen ic change. RAD/Chest PA and Lateral IMPRESSION: Question possibility of mild interstitial edema. The lungs otherwise appear clear. Large hiatal hernia. Reading Location: [id number] CC: Dr. Butch Nolasco MD Help Desk Operator: Signed Normal [facility] Chloride assayOrdered By: Jona Nolasco on 12-28-2024 Chloride [Moles/Vol] 108 mmol/L 98-108 [facility] Comprehensive Metabolic Prof ilon 12-28-2024 Albumin [Mass/Vol] 4.0 g/dL Normal 3.4-4.8 [facility] Comment on above: Performed By: #### L 500.4050, L100.0100, L300.8000, L503.7505, L501.9520 #### [facility] [address] [place], [address] Albumin/Globulin [Mass ratio] 1.3 {ratio} Normal 0.9-2.4 [facility] Comment on above: Performed By: #### L 500.4050, L100.0100, L300.8000, L503.7505, L501.9520 #### [facility] [address] [place], [address] ALK PHOS 138 U/L High 40-129 [facility] Comment on above: Performed By: #### L 500.4050, L100.0100, L300.8000, L503.7505, L501.9520 #### [facility] [address] [place], [address] ALT [Catalytic activity/Vol] 19 U/L Normal <=46 [facility] Comment on above: Performed By: #### L 500.4050, L100.0100, L300.8000, L503.7505, L501.9520 #### [facility] [address] [place], [address] AST [Catalytic activity/Vol] 24 U/L Normal <=37 [facility] Comment on above: Performed By: #### L 500.4050, L100.0100, L300.8000, L503.7505, L501.9520 #### [facility] [address] [place], [address] Bilirubin [Mass/Vol] 2.12 mg/dL High 0.00-1.30 [facility] Comment on above: Performed By: #### L 500.4050, L100.0100, L300.8000, L503.7505, L501.9520 #### [facility] [address] [place], [address] BUN/CRE 18.6 RATIO Normal 10-20 [facility] Comment on above: Performed By: #### L 500.4050, L100.0100, L300.8000, L503.7505, L501.9520 #### [facility] [address] [place], [address] Calcium [Mass/Vol] 9.2 mg/dL Normal 7.6-11.0 [facility] Comment on above: Performed By: #### L 500.4050, L100.0100, L300.8000, L503.7505, L501.9520 #### [facility] [address] [place], [address] Chloride [Moles/Vol] 108 mmol/L Normal 98-108 [facility] Comment on above: Performed By: #### L 500.4050, L100.0100, L300.8000, L503.7505, L501.9520 #### [facility] [address] [place], [address] CO2 [Moles/Vol] 24.4 mmol/L Normal 21.0-32.0 [facility] Comment on above: Performed By: #### L 500.4050, L100.0100, L300.8000, L503.7505, L501.9520 #### [facility] [address] [place], [address] Creatinine [Mass/Vol] 1.14 mg/dL Normal 0.70-1.20 [facility] Comment on above: Performed By: #### L 500.4050, L100.0100, L300.8000, L503.7505, L501.9520 #### [facility] [address] [place], [address] GAP 11 Normal 5-15 [facility] Comment on above: Performed By: #### L 500.4050, L100.0100, L300.8000, L503.7505, L501.9520 #### [facility] [address] [place], [address] GFR/1.73 sq M.predicted among non-blacks MDRD (S/P/Bld) [Vol rate/Area] 66 mL/min/{1.73_m2} Normal >60 [facility] Comment on above: Result Comment: mL/m in/1.73m2 CKD-EPI Creatinine Equation (2020) Performed By: #### L 500.4050, L100.0100, L300.8000, L503.7505, L501.9520 #### [facility] [address] [place], [address] Globulin (S) [Mass/Vol] 3.0 g/dL Normal 2.2-4.2 [facility] Comment on above: Performed By: #### L 500.4050, L100.0100, L300.8000, L503.7505, L501.9520 #### [facility] [address] [place], [address] Glucose [Mass/Vol] 102 mg/dL High 70-99 [facility] Comment on above: Performed By: #### L 500.4050, L100.0100, L300.8000, L503.7505, L501.9520 #### [facility] [address] [place], [address] Potassium [Moles/Vol] 4.0 mmol/L Normal 3.3-5.1 [facility] Comment on above: Performed By: #### L 500.4050, L100.0100, L300.8000, L503.7505, L501.9520 #### [facility] [address] [place], [address] Sodium [Moles/Vol] 143 mmol/L Normal 133-145 [facility] Comment on above: Performed By: #### L 500.4050, L100.0100, L300.8000, L503.7505, L501.9520 #### [facility] [address] [place], [address] T PROT 7.0 g/dL Normal 5.9-8.4 [facility] Comment on above: Performed By: #### L 500.4050, L100.0100, L300.8000, L503.7505, L501.9520 #### [facility] [address] [place], [address] Urea nitrogen [Mass/Vol] 21 mg/dL High 4-19 [facility] Comment on above: Performed By: #### L 500.4050, L100.0100, L300.8000, L503.7505, L501.9520 #### [facility] [address] [place], [address] D-Dimer Quantitative (DVT/PE )on 12-28-2024 D-DIMER QUANT 0.90 FEU/ug/m Invalid Interpretation Code 0.27-0.49 [facility] Comment on above: Result Comment: CRIT ICAL VALUE CALLED TO PARUL IYER 12/28/24 Ranjan Zendejas. RESULTS READ BACK BY SAME. D-Dimer ELEVATED (>0.49): Additional studies and clinical assessments are indicated to conclude diagnosis of: Deep Vein Thrombosis (DVT) or Pulmonary Embolism (PE) Performed By: #### L 500.4050, L100.0100, L300.8000, L503.7505, L501.9520 #### [facility] [address] [place], [address] Eosinophil percentageOrdered By: Butch Nolasco on 12-28-2024 Eosinophils/100 WBC (Bld) 2.2 % 0-5 [facility] Erythrocyte distribution wid th ratioOrdered By: Butch Nolasco on 12-28-2024 Erythrocyte distribution width (RBC) [Ratio] 13.2 % 11.6-14.6 [facility] Erythrocyte distribution wid th standard deviationOrdered By: Butch Nolasco on 12-28-2024 Erythrocyte distribution width (RBC) [Ratio] 46.8 fl High 35.1-43.9 [facility] Glomerular filtration rate ( GFR) estimation/1.73 sq m using serum, plasma, or whole bOrdered By: Butch Nolasco on 12-28-2024 GFR/1.73 sq M.predicted among non-blacks MDRD (S/P/Bld) [Vol rate/Area] 66 mL/min/{1.73_m2} >60 [facility] Comment on above: mL/min/1.73m2 CKD-EP I Creatinine Equation (2020) Hematocrit Auto (Bld) [Volum e fraction]Ordered By: Butch Nolasco on 12-28-2024 Hematocrit (Bld) [Volume fraction] 44.0 % 40-54 [facility] Hemoglobin measurementOrdere d By: Butch Nolasco on 12-28-2024 Hemoglobin (Bld) [Mass/Vol] 14.6 g/dL 13.0-16.5 [facility] Immature granulocytes/100 WB C Auto (Bld)Ordered By: Butch Nolasco on 12-28-2024 Immature granulocytes/100 WBC (Bld) 0.500 % 0.0-0.9 [facility] Comment on above: IG% - Immature Granu locytes (promyelocytes, myelocytes and metamyelocytes) > 1% indicates that a LEFT SHIFT is Present. L503.7505on 12-28-2024 Natriuretic peptide B (Bld) [Mass/Vol] 3105 pg/mL High <=1800 [facility] Comment on above: Result Comment: Hear t Failure Unlikely: < 300 pg/mL Heart Failure Likely < 50 Years: > 450 pg/mL 50-75 Years: > 900 pg/mL >75 Years: > 1800 pg/mL Performed By: #### L 500.4050, L100.0100, L300.8000, L503.7505, L501.9520 #### [facility] [address] [place], [address] Laboratory - Chemistry and C hemistry - challengeOrdered By: Butch Nolasco on 12-28-2024 AST [Catalytic activity/Vol] 24 U/L <38 [facility] MCV (mean corpuscular volume ) determinationOrdered By: Butch Nolasco on 12-28-2024 MCV (RBC) [Entitic vol] 95.2 fL High 80-94 [facility] Mean corpuscular hemoglobin (MCH) determinationOrdered By: Butch Nolasco on 12-28-2024 MCH (RBC) [Entitic mass] 31.6 pg 27.0-32.0 [facility] Mean corpuscular hemoglobin concentration (MCHC) determinationOrdered By: Butch Nolasco on 12-28-2024 MCHC (RBC) [Mass/Vol] 33.2 g/dL 32-36 [facility] Mean platelet volume determi nationOrdered By: Butch Nolasco on 12-28-2024 Platelet mean volume (Bld) [Entitic vol] 10.8 fL 6.2-12.0 [facility] Monocyte percentageOrdered B y: Butch Nolasco on 12-28-2024 Monocytes/100 WBC (Bld) 8.0 % 0-10 [facility] Natriuretic peptide.B prohor rfaia N-Terminal [Mass/volume] in Serum or PlasmaOrdered By: Butch Nolasco on 12-28-2024 Natriuretic peptide.B prohormone N-Terminal [Mass/Vol] 3105 pg/mL High <1800 [facility] Comment on above: Heart Failure Unlike ly: < 300 pg/mLHeart Failure Likely< 50 Years: > 450 pg/mL50-75 Years: > 900 pg/mL>75 Years: > 1800 pg/mL Neutrophil percentageOrdered By: Butch Nolasco on 12-28-2024 Neutrophils/100 WBC (Bld) 62.1 % 47-70 [facility] Nucleated red blood cell per centageOrdered By: Butch Nolasco on 12-28-2024 Nucleated RBC/100 WBC (Bld) [Ratio] 0 % 0-5 [facility] Platelet countOrdered By: Jona Nolasco on 12-28-2024 Platelets (Bld) [#/Vol] 193 10*3/uL 150-450 [facility] Potassium measurement (mass/ volume)Ordered By: Butch Nolasco on 12-28-2024 Potassium (Unsp spec) [Mass/Vol] 4.0 mmol/L 3.3-5.1 [facility] RBC Auto (Bld) [#/Vol]Ordere d By: Butch Nolasco on 12-28-2024 RBC (Bld) [#/Vol] 4.62 10*6/uL 4.6-6.2 [facility] Serum creatinine measurement (mass/volume)Ordered By: Butch Nolasco on 12-28-2024 Creatinine [Mass/Vol] 1.14 mg/dL 0.70-1.20 [facility] Serum globulin measurementOr dered By: Butch Nolasco on 12-28-2024 Globulin (S) [Mass/Vol] 3.0 g/dL 2.2-4.2 [facility] Serum glucose measurement (m ass/volume)Ordered By: Butch Nolasco 12-28-2024 Glucose [Mass/Vol] 102 mg/dL High 70-99 [facility] Serum or plasma alanine paredes otransferase (ALT) measurementOrdered By: Butch Nolasco 12-28-2024 ALT [Catalytic activity/Vol] 19 U/L <47 [facility] Serum or plasma albumin agusto urement (mass/volume)Ordered By: Butch Nolasco 12-28-2024 Albumin [Mass/Vol] 4.0 g/dL 3.4-4.8 [facility] Serum or plasma albumin/glob ulin mass ratioOrdered By: Butch Nolasco 12-28-2024 Albumin/Globulin [Mass ratio] 1.3 {ratio} 0.9-2.4 [facility] Serum or plasma alkaline yael sphatase measurementOrdered By: Butch Nolasco 12-28-2024 ALP [Catalytic activity/Vol] 138 U/L High 40-129 [facility] Serum or plasma calcium agusto urement (mass/volume)Ordered By: Butch Nolasco 12-28-2024 Calcium [Mass/Vol] 9.2 mg/dL 7.6-11.0 [facility] Serum or plasma urea nitroge n measurement (mass/volume)Ordered By: Butch Nolasco 12-28-2024 Urea nitrogen [Mass/Vol] 21 mg/dL High 4-19 [facility] Sodium levelOrdered By: Butch Nolasco 12-28-2024 Sodium [Moles/Vol] 143 mmol/L 133-145 [facility] TSH DL <= 0.005 mIU/L QnOrde red By: Butch Nolasco on 12-28-2024 TSH Qn 1.850 uIU/mL 0.300-4.200 [facility] Thyroid Stim Hormone (TSH)on 12-28-2024 TSH 1.850 uIU/mL Normal 0.300-4.200 [facility] Comment on above: Performed By: #### L [id number], L100.0100, L300.8000, L503.7505, L501.9520 #### [facility] [address] [place], [address] Total proteinOrdered By: Butch Nolasco on 12-28-2024 Protein [Mass/Vol] 7.0 g/dL 5.9-8.4 [facility] White blood cell (WBC) count Ordered By: Butch Nolasco on 12-28-2024 WBC (Bld) [#/Vol] 6.2 10*3/uL 4.4-11.0 [facility] CBC W/Diff, Automatedon 10-2 -2023 Absolute Lymph 2.01 X10 3/uL Normal 0.83-4.51 [facility] Comment on above: Performed By: #### L [id number], L100.0100, L506.1000, L500.4050 #### [facility] [address] [place], [address] Absolute Neut 3.6 X10 3/uL Normal 2.0-7.7 [facility] Comment on above: Performed By: #### L [id number], L100.0100, L506.1000, L500.4050 #### [facility] [address] [place], [address] Basophils/100 WBC (Bld) 0.6 % Normal 0-1 [facility] Comment on above: Performed By: #### L [id number], L100.0100, L506.1000, [id number] #### [facility] [address] [place], [address] Eosinophils/100 WBC (Bld) 2.4 % Normal 0-5 [facility] Comment on above: Performed By: #### L [id number], L100.0100, L506.1000, L500.4050 #### [facility] [address] [place], [address] Erythrocyte distribution width (RBC) [Ratio] 13.2 % Normal 11.6-14.6 [facility] Comment on above: Performed By: #### L [id number], L100.0100, L506.1000, L500.4050 #### [facility] [address] [place], [address] Hematocrit (Bld) [Volume fraction] 42.4 % Normal 40-54 [facility] Comment on above: Performed By: #### L [id number], L100.0100, L506.1000, [id number] #### [facility] [address] [place], [address] Hemoglobin (Bld) [Mass/Vol] 14.1 g/dL Normal 13.0-16.5 [facility] Comment on above: Performed By: #### L [id number], L100.0100, L506.1000, L500.4050 #### [facility] [address] [place], [address] IG% 0.300 Normal 0.0-0.9 [facility] Comment on above: Result Comment: IG% - Immature Granulocytes (promyelocytes, myelocytes and metamyelocytes) > 1% indicates that a LEFT SHIFT is Present. Performed By: #### L [id number], L100.0100, L506.1000, L500.4050 #### [facility] [address] [place], [address] Lymphocytes/100 WBC (Bld) 32.2 % Normal 19-41 [facility] Comment on above: Performed By: #### L [id number], L100.0100, L506.1000, L500.4050 #### [facility] [address] [place], [address] MCH (RBC) [Entitic mass] 31.3 pg Normal 27.0-32.0 [facility] Comment on above: Performed By: #### L [id number], L100.0100, L506.1000, L500.4050 #### [facility] [address] [place], [address] MCHC (RBC) [Mass/Vol] 33.3 g/dL Normal 32-36 [facility] Comment on above: Performed By: #### L [id number], L100.0100, L506.1000, L500.4050 #### [facility] [address] [place], [address] MCV (RBC) [Entitic vol] 94.2 fL High 80-94 [facility] Comment on above: Performed By: #### L [id number], L100.0100, L506.1000, L500.4050 #### [facility] [address] [place], [address] Monocytes/100 WBC (Bld) 6.9 % Normal 0-10 [facility] Comment on above: Performed By: #### L [id number], L100.0100, L506.1000, L500.4050 #### [facility] [address] [place], [address] Neutrophils/100 WBC (Bld) 57.6 % Normal 47-70 [facility] Comment on above: Performed By: #### L [id number], L100.0100, L506.1000, L500.4050 #### [facility] [address] [place], [address] Nucleated RBC (Bld) [#/Vol] 0 10*3/uL Normal 0-5 [facility] Comment on above: Performed By: #### L [id number], L100.0100, L506.1000, L500.4050 #### [facility] [address] [place], [address] Platelet mean volume (Bld) [Entitic vol] 10.7 fL Normal 6.2-12.0 [facility] Comment on above: Performed By: #### L [id number], L100.0100, L506.1000, L500.4050 #### [facility] [address] [place], [address] Platelets (Bld) [#/Vol] 190 10*3/uL Normal 150-450 [facility] Comment on above: Performed By: #### L [id number], L100.0100, L506.1000, L500.4050 #### [facility] [address] [place], [address] RBC (Bld) [#/Vol] 4.50 10*6/uL Low 4.6-6.2 [facility] Comment on above: Performed By: #### L [id number], L100.0100, L506.1000, L500.4050 #### [facility] [address] [place], [address] RDW SD 46.4 fl High 35.1-43.9 [facility] Comment on above: Performed By: #### L [id number], L100.0100, L506.1000, L500.4050 #### [facility] [address] [place], [address] WBC (Bld) [#/Vol] 6.2 10*3/uL Normal 4.4-11.0 [facility] Comment on above: Performed By: #### L [id number], L100.0100, L506.1000, L500.4050 #### [facility] [address] [place], [address] Comprehensive Metabolic Prof ilon 05-24-2024 Albumin [Mass/Vol] 3.6 g/dL Normal 3.2-5.0 [facility] Comment on above: Performed By: #### L [id number], L100.0100, L506.1000, L500.4050 #### [facility] [address] [place], [address] Albumin/Globulin [Mass ratio] 1.1 {ratio} Normal 0.9-2.4 [facility] Comment on above: Performed By: #### L [id number], L100.0100, L506.1000, L500.4050 #### [facility] [address] [place], [address] ALK P 95 U/L Normal 45-117 [facility] Comment on above: Performed By: #### L [id number], L100.0100, L506.1000, L500.4050 #### [facility] [address] [place], [address] ALT [Catalytic activity/Vol] 27 U/L Normal 16-61 [facility] Comment on above: Performed By: #### L [id number], L100.0100, L506.1000, L500.4050 #### [facility] [address] [place], [address] AST [Catalytic activity/Vol] 24 U/L Normal 15-37 [facility] Comment on above: Performed By: #### L [id number], L100.0100, L506.1000, L500.4050 #### [facility] [address] [place], [address] Bilirubin [Mass/Vol] 1.20 mg/dL High 0.20-1.00 [facility] Comment on above: Result Comment: For patients on eltrombopag therapy, use of Dimension Coram TBIL is not recommended. Performed By: #### L [id number], L100.0100, L506.1000, L500.4050 #### [facility] [address] [place], [address] BUN/CRE 21.6 RATIO High 10-20 [facility] Comment on above: Performed By: #### L [id number], L100.0100, L506.1000, L500.4050 #### [facility] [address] [place], [address] CA,Total 9.2 mg/dL Normal 8.5-10.1 [facility] Comment on above: Performed By: #### L [id number], L100.0100, L506.1000, L500.4050 #### [facility] [address] [place], [address] Chloride [Moles/Vol] 111 mmol/L High 98-107 [facility] Comment on above: Performed By: #### L [id number], L100.0100, L506.1000, L500.4050 #### [facility] [address] [place], [address] CO2 [Moles/Vol] 29.0 mmol/L Normal 21.0-32.0 [facility] Comment on above: Performed By: #### L [id number], L100.0100, L506.1000, L500.4050 #### [facility] [address] [place], [address] Creatinine [Mass/Vol] 1.02 mg/dL Normal 0.70-1.30 [facility] Comment on above: Result Comment: The validity of the calculated GFR GFRAA in patients over 70 years has not been determined. Clinical correlation is essential. Performed By: #### L [id number], L100.0100, L506.1000, L500.4050 #### [facility] [address] [place], [address] EST GFR - AA 91 mL/min Normal >60 [facility] Comment on above: Result Comment: Afri can Nigerien GFR Calc Performed By: #### L [id number], L100.0100, L506.1000, L500.4050 #### [facility] [address] [place], [address] GAP 3 Low 5-15 [facility] Comment on above: Performed By: #### L [id number], L100.0100, L506.1000, L500.4050 #### [facility] [address] [place], [address] GFR/1.73 sq M.predicted among non-blacks MDRD (S/P/Bld) [Vol rate/Area] 75 mL/min/{1.73_m2} Normal >60 [facility] Comment on above: Result Comment: Non- GFR Calc Performed By: #### L [id number], L100.0100, L506.1000, L500.4050 #### [facility] [address] [place], [address] Globulin (S) [Mass/Vol] 3.4 g/dL Normal 2.2-4.2 [facility] Comment on above: Performed By: #### L [id number], L100.0100, L506.1000, L500.4050 #### [facility] [address] [place], [address] Glucose [Mass/Vol] 92 mg/dL Normal 74-106 [facility] Comment on above: Performed By: #### L [id number], L100.0100, L506.1000, L500.4050 #### [facility] [address] [place], [address] Potassium [Moles/Vol] 4.0 mmol/L Normal 3.5-5.1 [facility] Comment on above: Performed By: #### L [id number], L100.0100, L506.1000, L500.4050 #### [facility] [address] [place], [address] Sodium [Moles/Vol] 143 mmol/L Normal 136-145 [facility] Comment on above: Performed By: #### L [id number], L100.0100, L506.1000, L500.4050 #### [facility] [address] [place], [address] T PROT 7.0 g/dL Normal 6.4-8.2 [facility] Comment on above: Performed By: #### L [id number], L100.0100, L506.1000, L500.4050 #### [facility] [address] [place], [address] Urea nitrogen [Mass/Vol] 22 mg/dL High 7-18 [facility] Comment on above: Performed By: #### L [id number], L100.0100, L506.1000, [id number] #### [facility] [address] [place], [address] Thyroid Stim Hormone (TSH)on 05-24-2024 TSH 1.530 uIU/mL Normal 0.358-3.740 [facility] Comment on above: Performed By: #### L [id number], L100.0100, L506.1000, L500.4050 #### [facility] [address] [place], [address] Vitamin D,25 Hydroxyon 05-24 Vitamin D 25-OH 16.7 ng/mL Normal [facility] Comment on above: Result Comment: Kathia min D 25(OH) Status Range Deficiency <20 ng/mL (50nmol/L) Insufficiency 20 - 30 ng/mL (50 - 75 nmol/L) Sufficiency 30 - 100 ng/mL (75 - 250 nmol/L) Toxicity >100 ng/mL (>250 nmol/L) Performed By: #### L [id number], L100.0100, L506.1000, L500.4050 #### [facility] [address] [place], [place], [address] Absolute lymphocyte countOrd ered By: Butch Nolasco on 02-18-2023 Lymphocytes Auto (Unsp spec) [#/Vol] 1.77 10*3/uL 0.83-4.51 [facility] Basophil percentageOrdered B y: Butch Nolasco on 02-18-2023 Basophils/100 WBC (Bld) 0.8 % 0-1 [facility] Bilirubin [Mass/Vol] 1.50 mg/dL 0.20-1.00 [facility] Comment on above: For patients on eltr ombopag therapy, use of Dimension Coram TBIL is not recommended. Chloride [Moles/Vol] 109 mmol/L 98-107 [facility] Eosinophils/100 WBC (Bld) 3.3 % 0-5 [facility] Glucose [Mass/Vol] 74 mg/dL 74-106 [facility] Neutrophils (Bld) [#/Vol] 2.8 10*3/uL 2.0-7.7 [facility] Neutrophils/100 WBC (Bld) 53.9 % 47-70 [facility] Potassium [Moles/Vol] 4.2 mmol/L 3.5-5.1 [facility] Protein [Mass/Vol] 7.1 g/dL 6.4-8.2 [facility] Sodium [Moles/Vol] 143 mmol/L 136-145 [facility] WBC (Bld) [#/Vol] 5.1 10*3/uL 4.4-11.0 [facility] Blood erythrocytes count (nu mber/volume)Ordered By: Butch Nolasco on 02-18-2023 RBC (Bld) [#/Vol] 4.66 10*6/uL 4.6-6.2 [facility] Blood hemoglobin measurement (mass/volume)Ordered By: Butch Nolasco on 02-18-2023 Hemoglobin (Bld) [Mass/Vol] 14.4 g/dL 13.0-16.5 [facility] Blood lymphocytes/100 leukoc ytesOrdered By: Butch Gaurav on 02-18-2023 Lymphocytes/100 WBC (Bld) 34.6 % 19-41 [facility] Blood monocytes/100 leukocyt esOrdered By: [facility] Monocytes/100 WBC (Bld) 7.2 % 0-10 [facility] Blood platelet mean volumeOr dered By: [facility] on 02-18-2023 Platelet mean volume (Bld) [Entitic vol] 10.7 fL 6.2-12.0 [facility] Determination of erythrocyte mean corpuscular volume (MCV)Ordered By: [facility] MCV (RBC) [Entitic vol] 94.8 fL 80-94 [facility] Hematocrit Auto (Bld) [Volum e fraction]Ordered By: [facility] on 02-18-2023 Hematocrit (Bld) [Volume fraction] 44.2 % 40-54 [facility] - Chemistry and C hemistry - challengeOrdered By: [facility] on 02-18-2023 ALP [Catalytic activity/Vol] 113 U/L 45-117 [facility] ALT [Catalytic activity/Vol] 30 U/L 16-61 [facility] CO2 [Moles/Vol] 29.0 mmol/L 21.0-32.0 [facility] Globulin (S) [Mass/Vol] 3.5 g/dL 2.2-4.2 [facility] Urea nitrogen/Creatinine [Mass ratio] 11.6 mg/mg 10-20 [facility] - Hematology and Cell countsOrdered By: [facility] 02-18-2023 Erythrocyte distribution width (RBC) [Entitic vol] 47.4 fL 35.1-43.9 [facility] Erythrocyte distribution width (RBC) [Ratio] 13.5 % 11.6-14.6 [facility] Immature granulocytes/100 WBC (Bld) 0.200 % 0.0-0.9 [facility] Comment on above: IG% - Immature Granu locytes (promyelocytes, myelocytes and metamyelocytes) > 1% indicates that a LEFT SHIFT is Present. MCH (RBC) [Entitic mass] 30.9 pg 27.0-32.0 [facility] Nucleated RBC/100 WBC (Bld) [Ratio] 0 % 0-5 [facility] MCHC Auto (RBC) [Mass/Vol]Or dered By: Butch Nolasco on 02-18-2023 MCHC (RBC) [Mass/Vol] 32.6 g/dL 32-36 [facility] No Panel InformationOrdered By: Butch Nolasco on 02-18-2023 Estimated GFR (MDRD) Amer 75 mL/min >60 [facility] Comment on above: GFR Calc Estimated GFR (MDRD) Non-Af Amer 62 mL/min >60 [facility] Comment on above: Non- GFR Calc Thyroid Stimulating Hormone (TSH) 1.56 uIU/mL 0.358-3.74 [facility] Vitamin D 25-Hydroxy 28.3 ng/mL [facility] Comment on above: Vitamin D 25(OH) Sta tus Range Deficiency <20 ng/mL (50nmol/L) Insufficiency 20 - 30 ng/mL (50 - 75 nmol/L) Sufficiency 30 - 100 ng/mL (75 - 250 nmol/L) Toxicity >100 ng/mL (>250 nmol/L) Platelets bldOrdered By: Butch Nolasco on 02-18-2023 Platelets (Bld) [#/Vol] 168 10*3/uL 150-450 [facility] Serum or plasma albumin agusto urement (mass/volume)Ordered By: Butch Nolasco on 02-18-2023 Albumin [Mass/Vol] 3.6 g/dL 3.2-5.0 [facility] Serum or plasma albumin/glob ulin mass ratioOrdered By: Butch Nolasco on 02-18-2023 Albumin/Globulin [Mass ratio] 1.0 {ratio} 0.9-2.4 [facility] Serum or plasma calcium agusto urement (mass/volume)Ordered By: Butch Nolasco on 02-18-2023 Calcium [Mass/Vol] 8.7 mg/dL 8.5-10.1 [facility] Serum or plasma creatinine m easurement (mass/volume)Ordered By: Butch Nolasco on 02-18-2023 Creatinine [Mass/Vol] 1.21 mg/dL 0.70-1.30 [facility] Comment on above: The validity of the calculated GFR & GFRAA in patients over 70 years has not been determined. Clinical correlation is essential. Serum or plasma urea nitroge n measurement (mass/volume)Ordered By: Butch Nolasco on 02-18-2023 Urea nitrogen [Mass/Vol] 14 mg/dL 7-18 [facility] Thin prep Papanicolaou smear with manual screeningOrdered By: Butch Nolasco on 02-18-2023 Thin prep Papanicolaou smear with manual screening 23 U/L 15-37 [facility] Thin prep Papanicolaou smear with manual screening 5 5-15 [facility] Absolute lymphocyte countOrd ered By: Dr. Nolasco on 08-20-2022 Lymphocytes Auto (Unsp spec) [#/Vol] 1.41 10*3/uL 0.83-4.51 [facility] Basophil percentageOrdered B y: Dr. Nolasco on 08-20-2022 Basophils/100 WBC (Bld) 0.5 % 0-1 [facility] Bilirubin [Mass/Vol] 1.80 mg/dL 0.20-1.00 [facility] Comment on above: For patients on eltr ombopag therapy, use of Dimension Coram TBIL is not recommended. Chloride [Moles/Vol] 105 mmol/L 98-107 [facility] Eosinophils/100 WBC (Bld) 3.1 % 0-5 [facility] Glucose [Mass/Vol] 90 mg/dL 74-106 [facility] Neutrophils (Bld) [#/Vol] 2.3 10*3/uL 2.0-7.7 [facility] Neutrophils/100 WBC (Bld) 54.8 % 47-70 [facility] Potassium [Moles/Vol] 3.6 mmol/L 3.5-5.1 [facility] Protein [Mass/Vol] 6.8 g/dL 6.4-8.2 [facility] Sodium [Moles/Vol] 142 mmol/L 136-145 [facility] WBC (Bld) [#/Vol] 4.3 10*3/uL 4.4-11.0 [facility] Blood erythrocytes count (nu mber/volume)Ordered By: Dr. Nolasco on 08-20-2022 RBC (Bld) [#/Vol] 4.60 10*6/uL 4.6-6.2 [facility] Blood hemoglobin measurement (mass/volume)Ordered By: Dr. Nolasco on 08-20-2022 Hemoglobin (Bld) [Mass/Vol] 14.3 g/dL 13.0-16.5 [facility] Blood lymphocytes/100 leukoc ytesOrdered By: Dr. Nolasco on 08-20-2022 Lymphocytes/100 WBC (Bld) 33.1 % 19-41 [facility] Blood monocytes/100 leukocyt esOrdered By: Dr. Nolasco on 08-20-2022 Monocytes/100 WBC (Bld) 8.0 % 0-10 [facility] Blood platelet mean volumeOr dered By: Dr. Nolasco on 08-20-2022 Platelet mean volume (Bld) [Entitic vol] 11.1 fL 6.2-12.0 [facility] Determination of erythrocyte mean corpuscular volume (MCV)Ordered By: Dr. Nolasco on 08-20-2022 MCV (RBC) [Entitic vol] 90.2 fL 80-94 [facility] Hematocrit Auto (Bld) [Volum e fraction]Ordered By: Dr. Nolasco on 08-20-2022 Hematocrit (Bld) [Volume fraction] 41.5 % 40-54 [facility] - Chemistry and C hemistry - challengeOrdered By: Dr. Nolasco on 08-20-2022 ALP [Catalytic activity/Vol] 106 U/L 45-117 [facility] ALT [Catalytic activity/Vol] 28 U/L 16-61 [facility] CO2 [Moles/Vol] 30.0 mmol/L 21.0-32.0 [facility] Globulin (S) [Mass/Vol] 3.3 g/dL 2.2-4.2 [facility] Urea nitrogen/Creatinine [Mass ratio] 13.6 mg/mg 10-20 [facility] - Hematology and Cell countsOrdered By: Dr. Nolasco on 08-20-2022 Erythrocyte distribution width (RBC) [Entitic vol] 44.2 fL 35.1-43.9 [facility] Erythrocyte distribution width (RBC) [Ratio] 13.3 % 11.6-14.6 [facility] Immature granulocytes/100 WBC (Bld) 0.500 % 0.0-0.9 [facility] Comment on above: IG% - Immature Granu locytes (promyelocytes, myelocytes and metamyelocytes) > 1% indicates that a LEFT SHIFT is Present. MCH (RBC) [Entitic mass] 31.1 pg 27.0-32.0 [facility] Nucleated RBC/100 WBC (Bld) [Ratio] 0 % 0-5 [facility] MCHC Auto (RBC) [Mass/Vol]Or dered By: Dr. Nolasco on 08-20-2022 MCHC (RBC) [Mass/Vol] 34.5 g/dL 32-36 [facility] No Panel InformationOrdered By: Dr. Nolasco on 08-20-2022 Estimated GFR (MDRD) Amer 99 mL/min >60 [facility] Comment on above: GFR Calc Estimated GFR (MDRD) Non-Af Amer 82 mL/min >60 [facility] Comment on above: Non- GFR Calc Thyroid Stimulating Hormone (TSH) 1.56 uIU/mL 0.358-3.74 [facility] Vitamin D 25-Hydroxy 17.7 ng/mL [facility] Comment on above: Vitamin D 25(OH) Sta tus Range Deficiency <20 ng/mL (50nmol/L) Insufficiency 20 - 30 ng/mL (50 - 75 nmol/L) Sufficiency 30 - 100 ng/mL (75 - 250 nmol/L) Toxicity >100 ng/mL (>250 nmol/L) Platelets bldOrdered By: Dr. Nolasco on 08-20-2022 Platelets (Bld) [#/Vol] 149 10*3/uL 150-450 [facility] Serum or plasma albumin agusto urement (mass/volume)Ordered By: Dr. Nolasco on 08-20-2022 Albumin [Mass/Vol] 3.5 g/dL 3.2-5.0 [facility] Serum or plasma albumin/glob ulin mass ratioOrdered By: Dr. Nolasco on 08-20-2022 Albumin/Globulin [Mass ratio] 1.1 {ratio} 0.9-2.4 [facility] Serum or plasma calcium agusto urement (mass/volume)Ordered By: Dr. Nolasco on 08-20-2022 Calcium [Mass/Vol] 8.7 mg/dL 8.5-10.1 [facility] Serum or plasma creatinine m easurement (mass/volume)Ordered By: Dr. Nolasco on 08-20-2022 Creatinine [Mass/Vol] 0.96 mg/dL 0.70-1.30 [facility] Comment on above: The validity of the calculated GFR & GFRAA in patients over 70 years has not been determined. Clinical correlation is essential. Serum or plasma urea nitroge n measurement (mass/volume)Ordered By: Dr. Nolasco on 08-20-2022 Urea nitrogen [Mass/Vol] 13 mg/dL 02-17 [facility] Thin prep Papanicolaou smear with manual screeningOrdered By: Dr. Nolasco on 08-20-2022 Thin prep Papanicolaou smear with manual screening 26 U/L 15 [facility] Thin prep Papanicolaou smear with manual screening 7 5-15 [facility] Absolute lymphocyte counton 02-14-2022 Lymphocytes Auto (Unsp spec) [#/Vol] 1.47 10*3/uL 0.83-4.51 [facility] Work Phone: Basophil percentageon 2021 Basophils/100 WBC (Bld) 0.5 % 0-1 [facility] Work Phone: Bilirubin [Mass/Vol] 1.00 mg/dL 0.20-1.00 [facility] Work Phone: Comment on above: For patients on eltr ombopag therapy, use of Dimension Coram TBIL is not recommended. Chloride [Moles/Vol] 107 mmol/L 98-107 [facility] Work Phone: Eosinophils/100 WBC (Bld) 4.2 % 0-5 [facility] Work Phone: Glucose [Mass/Vol] 120 mg/dL 74-106 [facility] Work Phone: Comment on above: Fasting Glucose resu lt from 100 to 125 mg/dL suggests IMPAIRED HOMEOSTASIS per A.D.A. criteria. Neutrophils (Bld) [#/Vol] 3.6 10*3/uL 2.0-7.7 [facility] Work Phone: [phone] Neutrophils/100 WBC (Bld) 61.8 % 47-70 [facility] Work Phone: [phone] Potassium [Moles/Vol] 4.1 mmol/L 3.5-5.1 [facility] Work Phone: Protein [Mass/Vol] 7.4 g/dL 6.4-8.2 [facility] Work Phone: Sodium [Moles/Vol] 140 mmol/L 136-145 [facility] Work Phone: WBC (Bld) [#/Vol] 5.7 10*3/uL 4.4-11.0 [facility] Work Phone: [phone] Blood erythrocytes count (nu mber/volume)on 02-14-2022 RBC (Bld) [#/Vol] 4.68 10*6/uL 4.6-6.2 [facility] Work Phone: Blood hemoglobin measurement (mass/volume)on 02-14-2022 Hemoglobin (Bld) [Mass/Vol] 14.5 g/dL 13.0-16.5 [facility] Work Phone: Blood lymphocytes/100 leukoc yteson 02-14-2022 Lymphocytes/100 WBC (Bld) 25.6 % 19-41 [facility] Work Phone: [phone] Blood monocytes/100 leukocyt eson 02-14-2022 Monocytes/100 WBC (Bld) 7.7 % 0-10 [facility] Work Phone: Blood platelet mean volumeon 02-14-2022 Platelet mean volume (Bld) [Entitic vol] 10.2 fL 6.2-12.0 [facility] Work Phone: Determination of erythrocyte mean corpuscular volume (MCV)on 02-14-2022 MCV (RBC) [Entitic vol] 93.8 fL 80-94 [facility] Work Phone: Hematocrit Auto (Bld) [Volum e fraction]on 02-14-2022 Hematocrit (Bld) [Volume fraction] 43.9 % 40-54 [facility] Work Phone: Laboratory - Chemistry and C hemistry - challengeon 02-14-2022 ALP [Catalytic activity/Vol] 106 U/L 45-117 [facility] Work Phone: ALT [Catalytic activity/Vol] 29 U/L 16-61 [facility] Work Phone: CO2 [Moles/Vol] 27.0 mmol/L 21.0-32.0 [facility] Work Phone: Globulin (S) [Mass/Vol] 3.7 g/dL 2.2-4.2 [facility] Work Phone: Urea nitrogen/Creatinine [Mass ratio] 22.5 mg/mg 10-20 [facility] Work Phone: Laboratory - Hematology and Cell countson 02-14-2022 Erythrocyte distribution width (RBC) [Entitic vol] 44.5 fL 35.1-43.9 [facility] Work Phone: Erythrocyte distribution width (RBC) [Ratio] 13.0 % 11.6-14.6 [facility] Work Phone: Immature granulocytes/100 WBC (Bld) 0.200 % 0.0-0.9 [facility] Work Phone: Comment on above: IG% - Immature Granu locytes (promyelocytes, myelocytes and metamyelocytes) > 1% indicates that a LEFT SHIFT is Present. MCH (RBC) [Entitic mass] 31.0 pg 27.0-32.0 [facility] Work Phone: Nucleated RBC/100 WBC (Bld) [Ratio] 0 % 0-5 [facility] Work Phone: MCHC Auto (RBC) [Mass/Vol]on 02-14-2022 MCHC (RBC) [Mass/Vol] 33.0 g/dL 32-36 [facility] Work Phone: No Panel Informationon 02-14 Estimated GFR (MDRD) Amer 96 mL/min >60 [facility] Work Phone: Comment on above: GFR Calc Estimated GFR (MDRD) Non-Af Amer 80 mL/min >60 [facility] Work Phone: Comment on above: Non- GFR Calc Hepatitis C Antibody Non-Reactive Nonreactive [facility] Work Phone: Comment on above: Non Reactive: < 0.8 Equivocal: >/= 0.8 to < 1.0 Reactive: >/= 1.0The [facility] recommends that a reactive/equivocal HCV antibody result be followed up by the HCV Nucleic Acid Amplificationtest (580061) Prostate Specific Antigen Screen 1.11 ng/mL 0.00-4.00 [facility] Work Phone: Comment on above: This test was perfor med using the TPSA assay method for [employer] chemistry system. Values obtained with differentassay methods cannot be used interchangably.When changing PSA assays in the course of monitoring apatient, additional sequential testing should be carriedout to confirm baseline values. Thyroid Stimulating Hormone (TSH) 0.94 uIU/mL 0.358-3.74 [facility] Work Phone: Vitamin D 25-Hydroxy 25.3 ng/mL [facility] Work Phone: Comment on above: Vitamin D 25(OH) Sta tus Range Deficiency <20 ng/mL (50nmol/L) Insufficiency 20 - 30 ng/mL (50 - 75 nmol/L) Sufficiency 30 - 100 ng/mL (75 - 250 nmol/L) Toxicity >100 ng/mL (>250 nmol/L) Platelets bldon 02-14-2022 Platelets (Bld) [#/Vol] 192 10*3/uL 150-450 [facility] Work Phone: Serum or plasma albumin agusto urement (mass/volume)on 02-14-2022 Albumin [Mass/Vol] 3.7 g/dL 3.2-5.0 [facility] Work Phone: Serum or plasma albumin/glob ulin mass ratioon 02-14-2022 Albumin/Globulin [Mass ratio] 1.0 {ratio} 0.9-2.4 [facility] Work Phone: Serum or plasma calcium agusto urement (mass/volume)on 02-14-2022 Calcium [Mass/Vol] 9.0 mg/dL 8.5-10.1 [facility] Work Phone: Serum or plasma creatinine m easurement (mass/volume)on 02-14-2022 Creatinine [Mass/Vol] 0.98 mg/dL 0.70-1.30 [facility] Work Phone: Comment on above: The validity of the calculated GFR & GFRAA in patients over 70 years has not been determined. Clinical correlation is essential. Serum or plasma urea nitroge n measurement (mass/volume)on 02-14-2022 Urea nitrogen [Mass/Vol] 22 mg/dL 7-18 [facility] Work Phone: Thin prep Papanicolaou smear with manual screeningon 02-14-2022 Thin prep Papanicolaou smear with manual screening 21 U/L 15-37 [facility] Work Phone: Thin prep Papanicolaou smear with manual screening 6 5-15 [facility] Work Phone: Absolute lymphocyte counton 02-04-2022 Lymphocytes Auto (Unsp spec) [#/Vol] 2.07 10*3/uL 0.83-4.51 [facility] Work Phone: Basophil percentageon 2021 Basophils/100 WBC (Bld) 0.6 % 0-1 [facility] Work Phone: [phone] Chloride [Moles/Vol] 111 mmol/L 98-107 [facility]: [phone] Eosinophils/100 WBC (Bld) 3.6 % 0-5 [facility] Work Phone: Glucose [Mass/Vol] 93 mg/dL 74-106 [facility] Work Phone: Neutrophils (Bld) [#/Vol] 3.8 10*3/uL 2.0-7.7 [facility] Work Phone: Neutrophils/100 WBC (Bld) 55.7 % 47-70 [facility] Work Phone: Potassium [Moles/Vol] 3.7 mmol/L 3.5-5.1 [facility] Work Phone: Sodium [Moles/Vol] 141 mmol/L 136-145 [facility] Work Phone: WBC (Bld) [#/Vol] 6.9 10*3/uL 4.4-11.0 [facility] Work Phone: Blood erythrocytes count (nu mber/volume)on 02-04-2022 RBC (Bld) [#/Vol] 4.58 10*6/uL 4.6-6.2 [facility] Work Phone: Blood hemoglobin measurement (mass/volume)on 02-04-2022 Hemoglobin (Bld) [Mass/Vol] 14.0 g/dL 13.0-16.5 [facility] Work Phone: Blood lymphocytes/100 leukoc yteson 02-04-2022 Lymphocytes/100 WBC (Bld) 30.2 % 19-41 [facility] Work Phone: [phone] Blood monocytes/100 leukocyt eson 02-04-2022 Monocytes/100 WBC (Bld) 9.6 % 0-10 [facility] Work Phone: [phone] Blood platelet mean volumeon 02-04-2022 Platelet mean volume (Bld) [Entitic vol] 10.6 fL 6.2-12.0 [facility] Work Phone: [phone] Determination of erythrocyte mean corpuscular volume (MCV)on 02-04-2022 MCV (RBC) [Entitic vol] 93.2 fL 80-94 [facility] Work Phone: Hematocrit Auto (Bld) [Volum e fraction]on 02-04-2022 Hematocrit (Bld) [Volume fraction] 42.7 % 40-54 [facility] Work Phone: Laboratory - Chemistry and C hemistry - challengeon 02-04-2022 CO2 [Moles/Vol] 27.0 mmol/L 21.0-32.0 [facility] Work Phone: Urea nitrogen/Creatinine [Mass ratio] 25.8 mg/mg 10-20 [facility] Work Phone: Laboratory - Hematology and Cell countson 02-04-2022 Erythrocyte distribution width (RBC) [Entitic vol] 46.4 fL 35.1-43.9 [facility] Work Phone: Erythrocyte distribution width (RBC) [Ratio] 13.6 % 11.6-14.6 [facility] Work Phone: Immature granulocytes/100 WBC (Bld) 0.300 % 0.0-0.9 [facility] Work Phone: Comment on above: IG% - Immature Granu locytes (promyelocytes, myelocytes and metamyelocytes) > 1% indicates that a LEFT SHIFT is Present. MCH (RBC) [Entitic mass] 30.6 pg 27.0-32.0 [facility] Work Phone: Nucleated RBC/100 WBC (Bld) [Ratio] 0 % 0-5 [facility] Work Phone: MCHC Auto (RBC) [Mass/Vol]on 02-04-2022 MCHC (RBC) [Mass/Vol] 32.8 g/dL 32-36 [facility] Work [facility]: No Panel Informationon 02-04 Estimated Creatinine Clearance Calc 66.81 ml/min [facility] Work Phone: Estimated GFR (MDRD) Amer 97 mL/min >60 [facility] Work Phone: Comment on above: GFR Calc Estimated GFR (MDRD) Non-Af Amer 80 mL/min >60 [facility] Work Phone: Comment on above: Non- GFR Calc Platelets bldon 02-04-2022 Platelets (Bld) [#/Vol] 196 10*3/uL 150-450 [facility] Work Phone: Serum or plasma calcium agusto urement (mass/volume)on 02-04-2022 Calcium [Mass/Vol] 8.8 mg/dL 8.5-10.1 [facility] Work Phone: Serum or plasma creatinine m easurement (mass/volume)on 02-04-2022 Creatinine [Mass/Vol] 0.97 mg/dL 0.70-1.30 [facility] Work Phone: Comment on above: The validity of the calculated GFR & GFRAA in patients over 70 years has not been determined. Clinical correlation is essential. Serum or plasma urea nitroge n measurement (mass/volume)on 02-04-2022 Urea nitrogen [Mass/Vol] 25 mg/dL 7-18 [facility] Work Phone: Thin prep Papanicolaou smear with manual screeningon 02-04-2022 Thin prep Papanicolaou smear with manual screening 3 5-15 [facility] Work Phone: Basophil percentageon 2021 Chloride [Moles/Vol] 109 mmol/L 98-107 [facility] Work Phone: Glucose [Mass/Vol] 99 mg/dL 74-106 [facility] Work Phone: Potassium [Moles/Vol] 4.5 mmol/L 3.5-5.1 [facility] Work Phone: Sodium [Moles/Vol] 142 mmol/L 136-145 [facility] Work Phone: Laboratory - Chemistry and C hemistry - challengeon 01-30-2022 CO2 [Moles/Vol] 28.0 mmol/L 21.0-32.0 [facility] Work Phone: Urea nitrogen/Creatinine [Mass ratio] 21.3 mg/mg 10-20 [facility] Work Phone: No Panel Informationon 01-30 Estimated Creatinine Clearance Calc 68.95 ml/min [facility] Work Phone: Estimated GFR (MDRD) Amer 101 mL/min >60 [facility] Work Phone: Comment on above: GFR Calc Estimated GFR (MDRD) Non-Af Amer 84 mL/min >60 [facility] Work Phone: Comment on above: Non- GFR Calc Serum or plasma calcium agusto urement (mass/volume)on 01-30-2022 Calcium [Mass/Vol] 8.8 mg/dL 8.5-10.1 [facility] Work Phone: Serum or plasma creatinine m easurement (mass/volume)on 01-30-2022 Creatinine [Mass/Vol] 0.94 mg/dL 0.70-1.30 [facility] Work Phone: Comment on above: The validity of the calculated GFR & GFRAA in patients over 70 years has not been determined. Clinical correlation is essential. Serum or plasma urea nitroge n measurement (mass/volume)on 01-30-2022 Urea nitrogen [Mass/Vol] 20 mg/dL 7-18 [facility] Work Phone: Thin prep Papanicolaou smear with manual screeningon 01-30-2022 Thin prep Papanicolaou smear with manual screening 5 5-15 [facility] Work Phone: Absolute lymphocyte counton 01-28-2022 Lymphocytes Auto (Unsp spec) [#/Vol] 2.13 10*3/uL 0.83-4.51 [facility] Work Phone: Basophil percentageon 2021 Basophils/100 WBC (Bld) 0.4 % 0-1 [facility] Work Phone: Eosinophils/100 WBC (Bld) 4.2 % 0-5 [facility] Work Phone: Neutrophils (Bld) [#/Vol] 4.3 10*3/uL 2.0-7.7 [facility] Work Phone: Neutrophils/100 WBC (Bld) 58.2 % 47-70 [facility] Work Phone: WBC (Bld) [#/Vol] 7.3 10*3/uL 4.4-11.0 [facility] Work Phone: Blood erythrocytes count (nu mber/volume)on 01-28-2022 RBC (Bld) [#/Vol] 4.52 10*6/uL 4.6-6.2 [facility] Work Phone: Blood hemoglobin measurement (mass/volume)on 01-28-2022 Hemoglobin (Bld) [Mass/Vol] 13.9 g/dL 13.0-16.5 [facility] Work Phone: Blood lymphocytes/100 leukoc yteson 01-28-2022 Lymphocytes/100 WBC (Bld) 29.1 % 19-41 [facility] Work Phone: Blood monocytes/100 leukocyt eson 01-28-2022 Monocytes/100 WBC (Bld) 8.0 % 0-10 [facility] Work Phone: Blood platelet mean volumeon 01-28-2022 Platelet mean volume (Bld) [Entitic vol] 10.3 fL 6.2-12.0 [facility] Work Phone: Determination of erythrocyte mean corpuscular volume (MCV)on 01-28-2022 MCV (RBC) [Entitic vol] 92.9 fL 80-94 [facility] Work Phone: Hematocrit Auto (Bld) [Volum e fraction]on 01-28-2022 Hematocrit (Bld) [Volume fraction] 42.0 % 40-54 [facility] Work Phone: Laboratory - Hematology and Cell countson 01-28-2022 Erythrocyte distribution width (RBC) [Entitic vol] 47.1 fL 35.1-43.9 [facility] Work Phone: Erythrocyte distribution width (RBC) [Ratio] 13.7 % 11.6-14.6 [facility] Work Phone: Immature granulocytes/100 WBC (Bld) 0.100 % 0.0-0.9 [facility] Work Phone: Comment on above: IG% - Immature Granu locytes (promyelocytes, myelocytes and metamyelocytes) > 1% indicates that a LEFT SHIFT is Present. MCH (RBC) [Entitic mass] 30.8 pg 27.0-32.0 [facility] Work Phone: Nucleated RBC/100 WBC (Bld) [Ratio] 0 % 0-5 [facility] Work Phone: MCHC Auto (RBC) [Mass/Vol]on 01-28-2022 MCHC (RBC) [Mass/Vol] 33.1 g/dL 32-36 [facility] Work Phone: Platelets bldon 01-28-2022 Platelets (Bld) [#/Vol] 175 10*3/uL 150-450 [facility] Work Phone: Vital Signs Date Time Vital Sign Value Performing Clinician Terrell manuel 02-26-2023 12:44-0400 Body height 175.[address] Butch Nolasco Work Phone: [facility] 02-26-2023 12:44-0400 Body mass index (BMI) [Ratio] 25.8 kg/m2 Dr. Butch Nolasco Work Phone: [facility] 02-26-2023 12:44-0400 Body weight 79.[address] Butch Nolasco Work Phone: [facility] 02-08-2022 10:28-0400 Body temperature 96.9 [degF] No Primary Care Physician [facility] Work Phone: 02-08-2022 10:28-0400 Diastolic blood pressure 77 mm[Hg] No Primary Care Physician [facility] Work Phone: 02-08-2022 10:28-0400 Heart rate 56 /min No Primary Care Physician [facility] Work Phone: 02-08-2022 10:28-0400 Respiratory rate 18 /min No Primary Care Physician [facility] Work Phone: 02-08-2022 10:28-0400 SaO2% (BldA) [Mass fraction] 96 % No Primary Care Physician [facility] Work Phone: 02-08-2022 10:28-0400 Systolic blood pressure 153 mm[Hg] No Primary Care Physician [facility] Work Phone: 02-05-2022 12:00-0400 Body height 177.01 cm No Primary Care Physician [facility] Work Phone: 02-05-2022 12:00-0400 Body weight 81.73 kg No Primary Care Physician [facility] Work Phone: 01-30-2022 20:46-0400 Diastolic blood pressure 85 mm[Hg] [facility] Work Phone: 01-30-2022 20:46-0400 Heart rate 72 /min [facility] Work Phone: 01-30-2022 20:46-0400 Systolic blood pressure 143 mm[Hg] [facility] Work Phone: 01-30-2022 14:00-0400 Body temperature 97.5 [degF] [facility] Work Phone: 01-30-2022 14:00-0400 Respiratory rate 18 /min [facility] Work Phone: 01-30-2022 14:00-0400 SaO2% (BldA) [Mass fraction] 96 % [facility] Work Phone: 01-29-2022 15:10-0400 Body height 177.01 cm [facility] Work Phone: 01-29-2022 15:10-0400 Body weight 81.73 kg [facility] Work Phone: 01-27-2022 22:00-0400 Body mass index (BMI) [Ratio] 25 kg/m2 [facility] Work Phone: Encounters Encounter Date Encounter Type Care Provider Facility Start: 02-13-2025 ambulatory Butch Carmelo [place] Facility:[facility] Start: 01-07-2025 ambulatory [facility] Gaur[facility] Facility:[facility] Start: 12-28-2024 End: 12-28-[address] Butch Nolasco MD Work Phone: [facility] Work Phone: Start: 12-28-2024 End: 12-28-[address] Butch Nolasco MD -Cat Scan [facility] Work Phone: Start: 12-28-2024 End: 12-28-2024 ambulatory Butch Carmelo Gaurav Facility:[facility] Start: 05-24-2024 End: 05-24-2024 ambulatory Butch Nolasco Facility:[facility] Start: 03-25-2023 Non-patient / Non-visit Dr. Jona Nolasco Work Phone: [facility] Start: 03-25-2023 End: 03-25-[address] Butch Nolasco Work Phone: [facility] Work Phone: Start: 03-25-2023 End: 03-25-[address] Butch Nolasco Work Phone: [facility] Work Phone: Start: 02-26-2023 End: 02-26-[address] Butch Nolasco Work Phone: [facility] Work Phone: Start: 02-21-2023 End: 02-21-2023 Patient encounter procedure [facility]-Ultrasound, [facility] Work Phone: Start: 02-18-2023 End: 02-18-2023 ambulatory [facility] Work Phone: Start: 02-18-2023 End: 02-18-2023 Patient encounter procedure [facility]-Laboratory, [facility] 3rd Flr Start: 08-20-2022 End: 08-20-2022 ambulatory [facility] Work Phone: Start: 08-20-2022 End: 08-20-2022 Patient encounter procedure [facility], [facility] 3rd Flr Start: 02-14-2022 End: 02-14-2022 Patient encounter procedure No Primary Care Physician [facility], [facility] 3rd Flr Start: 02-01-2022 Non-patient / Non-visit No Moni gonzález Care Physician [facility] Start: 01-31-2022 Non-patient / Non-visit No [facility] Care Physician [facility] Start: 01-27-2022 End: 01-30-2022 Discharged Recurring [facility] Start: 01-27-2022 End: 02-08-2022 [facility] Date Procedure Procedure Detail Performing Clinician Start: 12-28-2024 CT angiography of chest with contrast Dr. Butch Nolasco MD Work Phone: Start: 12-28-2024 D-dimer assay, quantitative Dr. Butch Nolasco MD Work Phone: Comment on above: CRITICAL VALUE CALLED TO PARUL IYER Ranjan Zendejas.RESULTS READ BACK BY SAME. D-Dimer ELEVATED (>0.49): Additional studies and clinicalassessments are indicated to conclude diagnosis of:Deep Vein Thrombosis (DVT) or Pulmonary Embolism (PE) Start: 12-28-2024 X-ray of chest, PA and lateral views Dr. Butch Nolasco MD Work Phone: Start: 12-28-2024 CT of head without contrast Dr. Butch Nolasco MD Work Phone: Start: 02-21-2023 Ultrasonography of abdomen Start: 02-18-2023 Plain x-ray of elbow Start: 02-01-2022 Esophagogastroduodenoscopy No Primary Ca re Physician Viral antigen assay Plan of Treatment Date Care Activity Detail Author Start: 03-04-2022 Blood chemistry [facility] Work Phone: Start: 02-25-2022 Blood chemistry [facility] Work Phone: Start: 02-18-2022 Blood chemistry [facility] Work Phone: Start: 02-11-2022 Blood chemistry [facility] Work Phone: Start: 02-08-2022 Development of care plan [facility] Work Phone: Start: 02-08-2022 Patient discharge [facility] Work Phone: Start: 02-04-2022 Blood chemistry [facility] Work Phone: Start: 02-03-2022 SARS-CoV-2 (COVID-19 ) Ag [Presence] in Respiratory specimen by Rapid immunoassay [facility] Work Phone: Start: 02-01-2022 Following clinical p athway protocol [facility] Work Phone: Start: 01-31-2022 Catheterization of vein [facility] Work Phone: Start: 01-30-2022 [facility] Work Phone: Start: 01-30-2022 Referral to gastroen terology service [facility] Work Phone: Start: 01-29-2022 Speech therapy assessment [facility] Work Phone: Start: 01-28-2022 Developing a treatment plan [facility] Work Phone: Start: 01-28-2022 Development of care plan [facility] Work Phone: Start: 01-27-2022 Admission procedure [facility] Work Phone: Start: 01-27-2022 Measuring intake and output [facility] Work Phone: Start: 01-27-2022 Patient referral to dietitian [facility] Work Phone: Start: 01-27-2022 Referral to occupational therapist [facility] Work Phone: Start: 01-27-2022 Referral to service [facility] Work Phone: Start: 01-27-2022 Verification routine [facility] Work Phone: Start: 01-27-2022 Vital signs measurements [facility] Work Phone: Start: 01-27-2022 [facility] Work Phone: Start: 01-27-2022 Patient referral to dietitian [facility] Work Phone: Patient referral [facility] Work Phone: Payers Date Payer Category Payer Medicare [id number] 2024 Self-pay Unknown [id number] Unknown [id number] Unknown [id number] Unknown [id number] Social History Date Type Detail Facility Start: 01-27-2022 End: 02-26-2023 Tobacco smoking status NHIS Unknown if ever smoked [facility] Start: 1945 Sex Assigned At Male [facility] Start: 02-26-2023 Tobacco smoking stat us NHIS Never smoked tobacco (finding) [facility] Goals Date Patient Goal Desired Activity /State Functional Status Date Assessment Result Facility 02-08-2022 Functional status Activity Ability Indepe ndent [facility] Work Phone: 02-07-2022 Functional status Ambulates;Chair [facility] [facility] Work Phone: 01-31-2022 Functional status Chair [facility] Work Phone: Mental Status Date Assessment Result Facility 02-08-2022 Cognitive function Voice/Name [facility] Work Phone: 02-06-2022 Cognitive function Appropriate;[facility] Work Phone: 01-30-2022 Cognitive function Voice/Name [facility] Work Phone: 01-29-2022 Cognitive function Appropriate;[facility] Work Phone: Radiology Diagnostic study note 12-29-2024 Note Date & Type Note Facility 12-29-2024 Radiology Diagnostic study note [facility] Imaging Services [address], [place] [id number] Chest PA and Lateral MR#: [id number] Acct: [id number] Name: Ebenezer LYNNE Rep #: [id number] : 1945 M 79 From: Kenny Monsivais MD PCP: Dr. Butch Nolasco MD Status: SRIKANTH NICOLE Study:Chest PA and Lateral Date of Exam: 12/28/24 Exam# [id number] Ordering Dr: Butch Nolasco MD PROCEDURE: CHEST PA AND LATERAL 12/28/2024 REASON FOR EXAM: SOB TECHNIQUE: Frontal and lateral views of the chest. COMPARISON: None available FINDINGS: Question possibility of mild interstitial edema. The lungs otherwise appear clear. No pleural effusion identified. Large hiatal hernia. Cardiac silhouette appears within limits for size. Ectatic appearing thoracic aorta with atherosclerotic change at the arch. Lower lumbar spondylosis/discogenic change. RAD/Chest PA and Lateral IMPRESSION: Question possibility of mild interstitial edema. The lungs otherwise appear clear. Large hiatal hernia. Reading Location: [id number] CC: Dr. Butch Nolasco MD ~ Help Desk Operator: Signed [facility] Radiology Diagnostic study note 12-28-2024 Note Date & Type Note Facility 05-28-2025 Radiology Diagnostic study note [facility] Imaging Services [address] [place] [place], [place] [address] CTA Chest W/WO Contrast MR#: [id number] Acct: [id number] Name: Ebenezer LYNNE Rep #: [id number] : 1945 M 79 From: Elvi Tena MD PCP: Dr. Butch Nolasco MD Status: REG C COREY Study:CTA Chest W/WO Contrast Date of Exam: 12/28/24 Exam# [id number] Ordering Dr: Butch Nolasco MD EXAM: CT Angiography Chest Without and With Intravenous Contrast CLINICAL INDICATION: D-DIMNER ELEVATED TECHNIQUE: Axial computed tomographic angiography images of the chest without and with intravenous contrast. This CT exam was performed using one or more of the following dose reduction techniques: automated exposure control, adjustment of the mA and/or kV according to patient size, and/or use of iterative reconstruction technique. MIP reconstructed images were created and reviewed. COMPARISON: No relevant prior studies available. FINDINGS: PULMONARY ARTERIES: Unremarkable. No pulmonary embolism. AORTA: No acute findings. No thoracic aortic aneurysm. LUNGS AND PLEURAL SPACES: Lung emphysema/COPD. Bilateral pleural effusions, greater on the right. No mass. No consolidation. No pneumothorax. HEART: Unremarkable. No cardiomegaly. No significant pericardial effusion. No evidence of RV dysfunction. MEDIASTINUM: Large esophageal hiatal hernia. BONES/JOINTS: No acute fracture. No dislocation. SOFT TISSUES: Unremarkable. LYMPH NODES: Unremarkable. No enlarged lymph nodes. CT/CTA Chest W/WO Contrast IMPRESSION: 1. No pulmonary embolism. 2. Large esophageal hiatal hernia. 3. Lung emphysema/COPD. Bilateral pleural effusions, greater on the right. Reading Location: [facility] CC: Dr. Butch Nolasco MD ~ Help Desk Operator: Signed [facility] Radiology Diagnostic study note 12-28-2024 Note Date & Type Note Facility 12-28-2024 Radiology Diagnostic study note [facility] Imaging Services [address] [place], [place] [address] Brain/Head without Contrast MR#: [id number] Acct: [id number] Name: Ebenezer LYNNE Rep #: [id number] : 1945 M 79 From: Beverly العراقي MD PCP: Dr. Butch Nolasco MD Status: REG Ebenezer NICOLE Study:Brain/Head without Contrast Date of Exa m: 12/28/24 Exam# [id number] Ordering Dr: Butch Nloasco MD EXAM: NONCONTRAST CT SCAN OF THE HEAD CLINICAL HISTORY: Stroke COMPARISON: None TECHNIQUE: Serial axial series through the head were obtained without contrast. 2-D coronaland sagittal reformats were then obtained. FINDINGS: Brain: There is no acute large territorial infarct, intracranial hemorrhage, midline shift or mass effect. There are atherosclerotic vascular calcifications involving the bilateral carotid siphons.The sella and pineal gland regions appear unremarkable. There is low-density in the deep white matter on the right and left consistent with chronic ischemic change. There is no evidence of cerebellar tonsillar herniation. Ventricles: There is no acute hydrocephalus. Basilar cisterns are patent. Paranasal sinuses: Well-aerated Mastoid air cells: Well-aerated. Calvarium: The bony calvarium is intact. Orbits: The bilateral globes are symmetric, without retrobulbar compressive masslesion or hemorrhage. Miscellaneous: CT/Brain/Head without Contrast IMPRESSION: There is low-density in the deep white matter on the right and left consistent with chronic ischemic change. Consider CT perfusion or MRI with diffusion scan, to exclude an acute component. Reading Location: [facility] CC: Dr. Butch Nolasco MD ~ Help Desk Operator: Signed [facility] Evaluation note Note Date & Type Note Facility Evaluation note Diagnosis Onset Date Debility acute Dysarthria acute Hypertensive urgency acute Left hemiparesis acute Osteoarthritis of left hip a cute Pulmonary nodule acute [facility] Work Phone: Evaluation note Note Date & Type Note Facility Evaluation note Diagnosis Onset Date Debility acute Dysarthria acute Dysphagia acute Hypertensive urgency acute Left hemiparesis acute Osteoarthritis of left hip a cute Pulmonary nodule acute [facility] Work Phone: Evaluation note Note Date & Type Note Facility Evaluation note No assessment information availa ble [facility] Work Phone: Evaluation note Note Date & Type Note Facility Evaluation note Diagnosis Onset Date Olecranon bursitis, right elbow acute Right elbow pain noneactive [facility] Work Phone: Hospital Discharge instructions Note Date & Type Note Facility Hospital Discharge instructions [facility] Work Phone: Hospital Discharge instructions Note Date & Type Note Facility Hospital Discharge instructions [facility] Work Phone: Reason for referral (narrative) Note Date & Type Note Facility Reason for referral (narrative) No reason for referral information available [facility] Work Phone: Chief Complaint and Reason for Visit Chief Complaint LT SIDE WEAKNESS DUE TO STROKE Reason for Visit Debility Dysarthria Hypertensive urgency Left hemiparesis Osteoarthritis of left hip Pulmonary nodule Chief Complaint LT SIDE WEAKNESS DUE TO STROKE LT SIDE WEAKNESS DUE TO STROKE Reason for Visit Debility Dysarthria Dysphagia Hypertensive urgency Left hemiparesis Osteoarthritis of left hip Pulmonary nodule Chief Complaint CHRONIC GASTRIC ULCE R Chief Complaint CHRONIC GASTRIC ULCE R RIGHT ELBOW Encounter for general adult medical examination wi Reason for Visit Olecranon bursitis, right elbow Right elbow pain Chief Complaint Admit Date STROKE December 28, 2024 12:36 pm Family History No Family History Records Found Relationship Condition Age at Onset Recorded Date/T nito mother Malignant neoplasm Unknown father Pulmonary embolism Unknown brother Malignant neoplasm Unknown Advance Directives No Advanced Directives Records Found Advance Directive Response Recorded Date/ Time Living Will No January 28, 2022 2:03pm Power of Custody Assistant No January 28 2 2:03pm Advance Directive Response Recorded Date/ Time Living Will No January 28, 2022 1:03pm Power of Custody Assistant No January 28 2 1:03pm Summary Purpose Additional Source Comments Care Teams (unrecognized sec tion and content) Team Status: Active Member Role Status Dates Dr. Butch Nolasco MD Primary Care Provider Active Team Status: Inactive Member Role Status Dates Dr. Butch Nolasco MD Primary Care Provider, Attending Provider Active Team Status: Inactive Member Role Status Dates Dr. Butch Nolasco MD Primary Care Provi dieter, Attending Provider, Referring Provider Active Team Status: Active Member Role Status Dates Dr. Butch Nolasco MD Primary Care Provi dieter, Attending Provider, Referring Provider Active Team Status: Inactive Member Role Status Dates Dr. Butch Nolasco MD Primary Care Provider, Referring Provider Active Yousuf Cox MD Attending Provider Active Team Status: Active Member Role Status Dates Dr. Butch Nolasco MD Primary Care Provider Active Dr. Can Alva MD Attending Provider Active Team Status: Inactive Member Role Status Dates Dr. Butch Nolasco MD Primary Care Provider Active Start: December 28, 2024 End: December 28, 2024 Dr. Butch Nolasco MD Attending Provider Active Start: December 28, 2024 End: December 28, 2024 Dr. Butch Nolasco MD Referring Provider Active Start: December 28, 2024 End: December 28, 2024 Goals (unrecognized section and content) Goals may be documented in a n alternate sectionGoals may be documented in an alternate sectionGoals may be documented in an alternate sectionGoals may be documented in an alternate section (unrecognized sect ion and content) No Status Records Found INFORMATION SOURCE (unrecogn ized section and content) DATE CREATED AUTHOR 01/07/2025 [facility] FOR RECORDS PERTAINING TO PATIENTS WHO ARE OR HAVE BEEN ENROLLED IN A CHEMICAL DEPENDENCY/SUBSTANCEABUSE PROGRAM, SOME INFORMATION MAY BE OMITTED. This clinical summary was aggregated from multiple sources. Caution should be exercised in using it in the provision of clinical care. This summary normalizes information from multiple sources, and as a consequence, information in this document may materially change the coding, format and clinical context of patient data. In addition, data may be omitted in some cases. CLINICAL DECISIONS SHOULD BE BASED ON THE PRIMARY CLINICAL RECORDS. [employer] provides no warranty or guarantee of the accuracy or completeness of information in this document.
--- NOTE | 2025-01-07 14:00 | MRI_ITS ---
PROCEDURE: BRAIN WITHOUT CONTRAST 01/07/2025 REASON FOR EXAM: TIA TECHNIQUE: Noncontrast brain MRI. Multiplanar and multisequence images were obtained. COMPARISON: CT scan on 12/28/2024. FINDINGS: Mild diffuse cortical atrophy, commensurate with the patient's age. Confluent T2 hyperintense foci in the periventricular and subcortical white matter suggestive of moderate chronic ischemic white matter disease. Scattered chronic ischemic foci in the basal ganglia, thalami and infratentorial white matter. Scattered foci of hemosiderin deposition products are noted in the supratentorial and infratentorial white matter, probably secondary to amyloid angiopathy. Late subacute hemorrhagic products are noted in the right cerebellar hemisphere measuring 1.8 x 1.2 cm without significant edema, mass effect or acute hemorrhage. The ventricles and extra-axial spaces are normal for the patient's age. No other abnormality is identified in the basal ganglia and thalami. No other abnormality is identified in the brainstem. No other abnormality is identified in the cerebellum. There is no midline shift or brain herniation. There is no demonstrated extra-axial, intraparenchymal, or intraventricular hemorrhage. There are no abnormal intra-or extra-axial fluid collections. There are no areas of restricted diffusion to suggest acute ischemia. The cerebellopontine angles, internal auditory canals and the cisternal portions of the accoustico - facial nerves are unremarkable. Unremarkable exam of the skull. Normal soft tissue structures. Mild chronic mucosal inflammatory changes of the ethmoid air cells. The remaining visualized paranasal sinuses and mastoid air cells are clear. The visualized portions of the orbits are unremarkable. MRI/Brain without Contrast IMPRESSION: Mild diffuse cortical atrophy, commensurate with the patient's age. Confluent T2 hyperintense foci in the periventricular and subcortical white mat ter suggestive of moderate chronic ischemic white matter disease. Scattered chronic ischemic foci in the basal ganglia, thalami and infratentoria l white matter. Scattered foci of hemosiderin deposition products are noted in the supratentori al and infratentorial white matter, probably secondary to amyloid angiopathy. Late subacute hemorrhagic products are noted in the right cerebellar hemisphere measuring 1.8 x 1.2 cm without significant edema, mass effect or acute hemorrhage. Reading Location[facility]
== END 2025-01-07 23:59 | disposition home or self-care (01) ==
LOC: MRI 13:08
PROVIDERS: PCP Family Medicine Geriatric Medicine; Referring Provider Family Medicine Geriatric Medicine; Visit Provider Family Medicine Geriatric Medicine
DX: G45.9 Transient cerebral ischemic attack, unspecified (principal); R06.02 Shortness of breath
CPT/HCPCS: 70551

== ENCOUNTER 2025-01-12 15:37 | Outpatient (RCR) | payer MEDICARE, SELFPAY ==
--- NOTE | 2025-01-12 18:15 | HP.PTEVAL_ITS ---
Patient's Visit Information Visit Information Visit Information: Ebenezer LYNNE is a 79 year old M referred to Physical Therapy by Dr. Butch Nolasco MD with a diagnosis of STROKE ,TIA. Date of Evaluation: 01/12/25 Physical Therapist: James Garnica, PT, Cert MDT, OCS Visit Plan Frequency: 2x /Week Duration: 4 Weeks Plan: CVA DECEMBER 2014 HAS RIGHT HIP PAIN PT INTERVENTIONS PROGRESSIVE BALANCE TRAINING ,GAIT TRAINING ,FUNCTIONAL STRENGTHENING AND BLE STRENGTHENING Subjective Subjective: This 79 male presents to physical therapy with CVA with right side weakness. 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 Patient had difficulty speaking and SOB. Patient did have MRI Late subacute hemorrhagic products are noted in the right cerebellar hemisphere measuring 1.8 x 1.2 cm without significant edema,mass effect or acute hemorrhage.Patient f/u with MD recommended PT . No hospitalization. Patient did not want OT/speech. Patient denies dizziness. Patient has FWW and cane but does not use. Denies parestehesia/tingling . Patient has no recent falls. Patient lives in 2 story stays on 1st floor ,with 5 steps and railing. Patient sleeping. Patient is able to bath dress. Patient has tub/shower set up. Patient spouse does all cooking and cleaning. Patient condition affects. QOL,and function SOCIAL: Pain Left Hip: Pain Intensity (Out of 10): 5 Pain Intensity Range: 10 Objective Objective: POSTURE: mild forward posture asymmetries leg length hip knee flexed with varus knee GAIT: ambulates with right knee varus antalgic gait unsteady ,lateral sway unsteady gait pattern no device ASYMMETRIES: leg length asymmetries shorter left NEURO: denies paresthesia /tingling reflexes patella ,achilles 1/3 FLEXABILTY: hamstrings mod tight BALANCE: fair+ MMT: quads/hams 4/5 ,hip flexion/abduction 4-/5 ,ankle 4/5 STAIRS: one step at a time Balance/Special Test Scores Functional Gait Assessment Score: 9 % Disability: 70.0000 CATSIB Score (Max score 120 seconds): 60 Lower Extremity Functional Score: 27 Goals Goal 1:: Patient to be I with HEP for balance and strengthening Goal Time Frame: 4-6 Weeks Goal 2:: Patient to improve CATSIBE by 5 points to decrease risk of falls Goal Time Frame: 4-6 Weeks Goal 3:: Patient to improve functional gait assessment score by 5 points to decrease risk of falls Goal Time Frame: 4-6 Weeks Goal 4:: Patient to improve LFES score by 5 points to improve QOL Goal Time Frame: 4-6 Weeks Goal 5:: Patient to improve LFES score by 5 points to improve QOL Goal Time Frame: 4-6 Weeks Rehabilitation Potential Physical Therapy Diagnosis: This patient had CVA December 2024 and H/O CVA 2021 along with hip injury that has causes pain patient will benefit from skilled with risk for falls ,decrease CTSIB and function gait assessments and impaired gait Rehabilitation Potential: Fair Anticipated Interventions Patient/Client Instruction: Educate patient on: Condition and Plan of Care For the Purpose of:: To decrease pain, To improve muscle performance and motor function, To improve ability to perform ADL's, To increase tolerance to activity/condition/position, To improve ability of physical actions for home/community/work/leisure, To improve gait and locomotor functions, To improve health of tissue, To decrease soft tissue restriction and To improve endurance Therapeutic Exercise to Include: Strength training, Endurance training, Balance training and Gait and locomotor training Comment: BLE For the Purpose of:: To increase ROM, To improve muscle performance and motor function, To improve ability to perform ADL's, To increase tolerance to activity/condition/position, To improve ability of physical actions for home/community/work/leisure, To improve gait and locomotor functions, To improve health of tissue, To decrease soft tissue restriction, To increase flexibility/ROM, To improve endurance, To improve balance and To improve tolerance to ADL's Text: Thank you for the opportunity to evaluate your patient. For Medicare and Medicare HMO plans, please review the plan of care and approve it. It will need to be FAXED BACK to us at [phone] for Medicare purposes. For Medicare only, by signing this I certify the plan of care. Please let me know if there are questions or concerns regarding this plan of care. Physician Signature: Date:
--- NOTE | 2025-04-10 17:20 | HP.PTDCNRP_ITS ---
Patient Information Patient Information: Ebenezer LYNNE was seen in my office for initial evaluation on 01/12/25. The following Plan of Care was established for this patient: POC Established Initial Frequency: 2x /Week Initial Duration: 4 Weeks Anticipated Interventions Patient/Client Instruction: Educate patient on: Condition and Plan of Care For the Purpose of:: To decrease pain, To improve muscle performance and motor function, To improve ability to perform ADL's, To increase tolerance to activity/condition/position, To improve ability of physical actions for kyleigh e/community/work/leisure, To improve gait and locomotor functions, To improve health of tissue, To decrease soft tissue restriction and To improve endurance Therapeutic Exercise to Include: Strength training, Endurance training, Balance training and Gait and locomotor training For the Purpose of:: To increase ROM, To improve muscle performance and motor function, To improve ability to perform ADL's, To increase tolerance to activity/condition/position, To improve ability of physical actions for home/community/work/leisure, To improve gait and locomotor functions, To improve health of tissue, To decrease soft tissue restriction, To increase flexibility/ROM, To improve endurance, To improve balance and To improve tolerance to ADL's Last Seen Last Seen: This patient was last seen in our office . Pertinent comments regarding their Physical therapy will appear below: Patient was seen for PT EVALUATION for CVA At this point I will be discontinuing this patient from physical therapy. I would be happy to see this patient again in the future if found appropriate by the physician. Thank you! James Garnica, PT, Cert MDT, OCS Balance/Gait/Functional tests Balance/Special Test Scores Functional Gait Assessment Score: 9 % Disability: 70.0000 CATSIB Score (Max score 120 seconds): 60 Lower Extremity Functional Score: 27
== END 2025-01-12 19:00 | disposition home or self-care (01) ==
LOC: PT 15:37
PROVIDERS: PCP Family Medicine Geriatric Medicine; Referring Provider Family Medicine Geriatric Medicine; Visit Provider Family Medicine Geriatric Medicine
DX: Z86.73 Personal history of transient ischemic attack (TIA), and cerebral infarction without residual deficits (principal)
CPT/HCPCS: 97162

== ENCOUNTER → 2025-02-13 | Outpatient (CLI) | payer MEDICARE, SELFPAY ==
--- NOTE | 2025-02-13 13:37 | ECHOD_ITS ---
Reason For Study Reason For Study: SHORTNESS OF BREATH Procedure This was a 2D Doppler, Color Flow transthoracic echocardiogram. Myocardial strain analysis was performed in this exam to aid in the assessment of cardiac function. Exam performed in department. Left Ventricle Normal LV size. The left ventricular ejection fraction is 60 %. No regional wall motion abnormalities noted. Right Ventricle Normal RV size. Normal systolic function. Atria Normal left atrium. Normal right atrium. Mitral Valve Bileaflet diffuse mitral valve thickening. Moderate (2+) eccentric mitral valve insufficiency. Tricuspid Valve Normal tricuspid valve. Mild (1+) tricuspid valve insufficiency. Aortic Valve Trisinus/trileaflet aortic valve. Early diastolic aortic flow reversal. Moderately severe (3+) aortic valve insufficiency. Pulmonic Valve Normal pulmonic valve. Great Vessels Normal aortic root. The pulmonary artery is normal size. Inferior vena cava collapse with respiration. Pericardium/Pleural No pericardial effusion. MMode/2D Measurements & Calculations LVIDd: 5.8 cm IVSd: 1.3 cm LVOT diam: 2.3 cm LVIDs: 3.8 cm LVPWd: 1.1 cm LVOT area: 4.1 cm2 RVDd: 3.5 cm FS: 35.0 % asc Aorta Diam: 3.9 cm LAV(MOD-bp): 44.5 ml LVAd ap4: 34.5 cm2 LAV(MOD-bp) Indexed: 22.8 ml/m2 LVLd ap4: 8.8 cm LAV(MOD-sp2): 52.1 ml EDV(MOD-sp4): 111.8 ml LAV(MOD-sp4): 32.0 ml EDV(sp4-el): 115.0 ml LVAs ap4: 19.9 cm2 LVLs ap4: 7.3 cm ESV(MOD-sp4): 45.4 ml ESV(sp4-el): 46.3 ml EF(MOD-sp4): 59.3 % EF(sp4-el): 59.7 % LVAd ap2: 36.3 cm2 SV(MOD-sp4): 66.3 ml SV(MOD-sp2): 81.3 ml LVLd ap2: 8.8 cm SI(MOD-sp4): 34.0 ml/m2 SI(MOD-sp2): 41.7 ml/m2 EDV(MOD-sp2): 122.1 ml EDV(sp2-el): 126.8 ml LVAs ap2: 18.6 cm2 LVLs ap2: 7.3 cm ESV(MOD-sp2): 40.8 ml ESV(sp2-el): 39.9 ml EF(MOD-sp2): 66.6 % SV(sp4-el): 68.7 ml Ao sinus diam: 4.[address] Junction: 3.5 cm TAPSE: 2.1 cm LA A4 area: 15.0 cm2 RA A4 area: 14.7 cm2 Time Measurements MV dec time: 0.27 sec Doppler Measurements & Calculations MV E max walter: 76.7 cm/sec Lat Peak E' Walter: 12.8 cm/sec Med Peak E' Walter: 8.8 cm/sec MV A max walter: 55.2 cm/sec E/E' lat: 6.0 E/E' med: 8.7 MV E/A: 1.4 MV dec slope: 281.7 cm/sec2 Ao V2 max: 180.4 cm/sec AI max walter: 456.6 cm/sec Ao max P.0 mmHg AI max P.5 mmHg Ao V2 mean: 132.0 cm/sec AI dec slope: 451.0 cm/sec2 Ao mean P.6 mmHg AI P1/2t: 296.6 msec Ao V2 VTI: 38.8 cm AV (velocity ratio): 0.75 DARIA(I,D): 3.1 cm2 DARIA(V,D): 2.9 cm2 LV V1 max: 127.9 cm/sec SV(LVOT): 119.1 ml PA V2 max: 47.9 cm/sec LV V1 max P.5 mmHg LV V1 mean P.4 mmHg LV V1 mean: 85.1 cm/sec LV V1 VTI: 29.2 cm TR max walter: 220.2 cm/sec TR max P.4 mmHg ECHO/Echo Complete Interpretation Summary Normal LV size. The left ventricular ejection fraction is 60 %. Moderately severe (3+) aortic valve insufficiency. Moderate (2+) eccentric mitral valve insufficiency. The global longitudinal strain is normal. The global longitudinal strain = -17. 7 % (normal). Ordering Physician: Butch Nolasco Chi Referring Physician: Butch Nolasco Chi Performed By: Marisol Whitfield RDCS
== END | disposition home or self-care (01) ==
LOC: CVS 13:34
PROVIDERS: PCP Family Medicine Geriatric Medicine; Referring Provider Family Medicine Geriatric Medicine; Visit Provider Family Medicine Geriatric Medicine
DX: R06.02 Shortness of breath (principal); Z86.73 Personal history of transient ischemic attack (TIA), and cerebral infarction without residual deficits
CPT/HCPCS: 93306

== ENCOUNTER → 2025-02-24 | Outpatient (CLI) | payer MEDICARE, SELFPAY ==
[2025-02-24 11:12] LABS: Hematocrit 40.1 % (40-54); Hemoglobin 13.7 g/dL (13.0-16.5); Immature Granulocytes Count 0.010 X10^3/uL (0.0-0.0); Mean Corp Hgb Conc 34.2 g/dL (32-36); Mean Corpuscular Volume 92.8 fL (80-94); Mean Platelet Vol. 10.4 fl (6.2-12.0); NRBC Flagged by Analyzer 0 % (0-5); Platelet Count 210 K/mm3 (150-450); RBC Distribution Width CV 13.3 % (11.6-14.6); RBC Distribution Width SD 45.1 fl (35.1-43.9); Red Blood Count 4.32 M/mm3 (4.6-6.2); White Blood Count 6.1 K/mm3 (4.4-11.0)
[2025-02-24 11:34] LABS: Anion Gap 12 (5-15); BUN 27 mg/dL (4-19); BUN/Creat Ratio 20.8 RATIO (10-20); Calcium,Total 9.5 mg/dL (7.6-11.0); Carbon Dioxide 26.8 mmol/L (21.0-32.0); Chloride 105 mmol/L (98-108); Glucose 108 mg/dL (70-99); Potassium 3.1 mmol/L (3.3-5.1)
== END | disposition home or self-care (01) ==
LOC: LAB 10:29
PROVIDERS: PCP Family Medicine Geriatric Medicine; Referring Provider Internal Medicine Cardiovascular Disease; Visit Provider Internal Medicine Cardiovascular Disease
DX: I11.0 Hypertensive heart disease with heart failure (principal); I50.9 Heart failure, unspecified; E78.5 Hyperlipidemia, unspecified; I35.9 Nonrheumatic aortic valve disorder, unspecified; J90 Pleural effusion, not elsewhere classified
CPT/HCPCS: 36415; 80048; 85025

== ENCOUNTER 2025-03-06 08:54 | Day surgery (SDC) | payer MEDICARE, SELFPAY ==
[2025-03-03 09:17] VITALS: BMI 24.9
--- NOTE | 2025-03-06 09:06 | ECHOTEE_ITS ---
Reason For Study Reason For Study: MURMUR Medication CHARMAINE probe 6VT-D (SN [id number]) passed without difficulty. No complications were noted. Cetacaine Topical [place] given X3 orally. Versed 2 mg given slow IVP. Fentanyl 50 mcg given slow IVP. Performed a rapid injection of agitated mix of 9 cc saline and 1cc air to assess for atrial septal defect. Left Ventricle Normal LV size. The left ventricular ejection fraction is 60 %. No regional wall motion abnormalities noted. Right Ventricle Normal RV size. Normal systolic function. Atria Bubble contrast study is negative for PFO/ASD. The left atrium is mildly enlarged. No thrombus is detected in the left atrial appendage. Normal right atrium. Mitral Valve Normal mitral valve. Mild (1+) eccentric mitral valve insufficiency. Tricuspid Valve Normal tricuspid valve. Aortic Valve Trisinus/trileaflet aortic valve. Mild focal aortic valve calcification. Mild focal aortic valve thickening. Severe (4+) eccentric aortic valve insufficiency. Pulmonic Valve Normal pulmonic valve. Vessels Normal aortic root. Pericardium No pericardial effusion. ECHO/Echo Transesophageal (CHARMAINE) Interpretation Summary Bubble contrast study is negative for PFO/ASD. Normal LV size. The left ventricular ejection fraction is 60 %. No thrombus is detected in the left atrial appendage. Mild (1+) eccentric mitral valve insufficiency. Severe (4+) eccentric aortic valve insufficiency. Mild focal aortic valve thickening. Ordering Physician: Burak Andres Referring Physician: Butch Nolasco Chi Performed By: Marisol Whitfield RDCS
[2025-03-06 09:27] LABS: Anion Gap 11 (5-15); BUN 18 mg/dL (4-19); BUN/Creat Ratio 15.8 RATIO (10-20); Calcium,Total 9.0 mg/dL (7.6-11.0); Carbon Dioxide 24.8 mmol/L (21.0-32.0); Chloride 110 mmol/L (98-108); Estimated Creatinine Clearance 55.73 ml/min (50-250); Glucose 114 mg/dL (70-99); Potassium 4.5 mmol/L (3.3-5.1)
--- NOTE | 2025-03-13 09:47 | CL.D_ITS ---
Patient Name: Ebenezer LYNNE Study Date: 03/06/2025 Performing: Burak Andres MD Ht: 69 inches 175.26 cm : 1945 Wt: 169.01 lbs 76.66 kg Age: 79 Gender: male BSA: 1.92 PROCEDURE(S) PERFORMED DC01-(75213)LHC/COR/LV DC11-([id number])AO ROOT ANGIO WITH HEART CATH CLINICAL PROFILE AND INDICATIONS Indications: Valvular Disease Heart Failure: NYHA Class: 2, Newly Diagnosed: Yes, Heart Failure Type: Diastolic CAD Presentations: Other: SOB CONCLUSIONS Mild coronary disease involving the first diagonal vessel and mild LAD disease. Severe aortic regurgitation. RECOMMENDATIONS AVR DESCRIPTION OF PROCEDURE The patient arrived to the procedure lab. The risks and benefits of the procedure as well as a full description of our services here and current unavailability of surgical backup were fully explained to the patient and/or their significant other prior to the catheterization. The Timeout was completed, verifying the correct patient and procedure. The patient's procedural site was prepped and draped in the usual fashion. Local anesthetic was given subcutaneously to right radial region with Lidocaine 2%. Using a modified Seldinger technique, arterial access was obtained via the right radial artery, a 6Fr sheath was inserted. Left Coronary Artery selective angiography was performed in multiple views using a 5 Fr. 4.0 [place] catheter. Right Coronary Artery selective angiography was then performed in multiple views using a 5 Fr. 4.0 [place] catheter. Left Coronary Artery selective angiography was performed in multiple views using a 5 Fr. JL4 catheter. Left Ventriculography was performed in GAVIN projection using a 5 Fr. Pigtail catheter. LV to AO pullback pressures were then recorded. Ascending (root) aorta selective angiography was then performed in single view. Ascending (root) aorta selective angiography was then performed in single view.The arterial sheath was pulled and a TR Band was applied for hemostasis CORONARY ANGIOGRAPHY DOMINANCE: Right Dominant LEFT HEART ASSESSMENT Left Ventricular Ejection Fraction: by LV Gram 60 % Normal LV wall motion Normal Left Ventricular systolic function LEFT MAIN: Angiographically normal LEFT ANTERIOR DESCENDING ARTERY: Mild luminal irregularities less than 30% DIAGONAL 1: Proximal - 70% stenosis % Stenosis CIRCUMFLEX ARTERY: Mild luminal irregularities less than 30% RIGHT CORONARY ARTERY: Mild luminal irregularities less than 30% VALVE FINDINGS: Aortic Valve Insufficiency: Grade 4 AORTIC ROOT: Dilated COMPLICATIONS No Complications PROCEDURE MEDICATIONS Versed 1 mg IV Fentanyl 50 mcg IV Aspirin (325mg) 1 Tabs PO @ 03/06/2025 09:30:03 Heparin given IA 03/06/2025 11:53:38 Verapamil 2.5mg, Ntg 100mcgs, 3000 units of Heparin given IA 03/06/2025 11:53:38 SUMMARY OF HEMODYNAMIC DATA Time AIR REST ECG 09:28:37 AO 185/66 (109) SA 11:52:03 LV 146/8, 37 12:04:16 LV 141/11, 22 12:04:24 LV 149/12, 38 12:04:50 LV 161/16, 42 12:05:37 LVp 159/12, 40 12:05:43 AOp 167/67 (108) 12:05:50 AIR REST 12:22:27 Signed By Burak Andres MD On 03/06/2025 12:22:50 Burak Andres MD
== END 2025-03-06 14:35 | disposition home or self-care (01) ==
PROVIDERS: PCP Family Medicine Geriatric Medicine; Referring Provider Internal Medicine Cardiovascular Disease; Visit Provider Internal Medicine Cardiovascular Disease
DX: I25.10 Atherosclerotic heart disease of native coronary artery without angina pectoris (principal); I11.0 Hypertensive heart disease with heart failure; I50.31 Acute diastolic (congestive) heart failure; I35.1 Nonrheumatic aortic (valve) insufficiency; E78.5 Hyperlipidemia, unspecified; Z79.02 Long term (current) use of antithrombotics/antiplatelets; Z79.899 Other long term (current) drug therapy; Z86.73 Personal history of transient ischemic attack (TIA), and cerebral infarction without residual deficits
CPT/HCPCS: 36415; 80048; 93312; 93320; 93325; 93458; 99152; 99153; Q9967; C1769; C1894